=== PATIENT | male | born 1965 | race Hispanic/Latino ===

== ENCOUNTER 2017-11-17 09:32 | Emergency (ER) | payer MEDICAID ==
[2017-11-17 09:39] VITALS: TEMP 97.2; O2SAT 100
--- NOTE | 2017-11-17 10:18 | ED.PDOC ---
History of Present Illness - General Chief Complaint: GI Problem Stated Complaint: j-tube came out Time Seen by Provider: 11/17/17 10:09 Information Source: EMS Exam Limitations: clinical condition, physical impairment - History of Present Illness Initial Comments: THIS PATIENT COMES FROM [facility]. HE HAS BEEN THERE FOR ABOUT ONE MONTH AND EVIDENTLY HE SUSTAINED AN ANOXIC INJURY. NOW HE IS VENTILATOR DEPENDENT. THIS MORNING IT WAS NOTED THAT THE J-TUBE WAS TOTALLY OUT OF PLACE. THE NURSING STAFF OBTAINED A DOUBLE LUMEN GI FEEDING TUBE AND PLACED IT IN THE STOMA. NOW THE PATIENT IS HERE TO SEE IF THE TUBE IS PLACED INSIDE THE INTESTINE. WILL OBTAIN AN X-RAY WITH DYE TO VERIFY PLACEMENT. Pain Radiation: LLQ Review of Systems - Review of Systems Unable to Obtain Due To: intubated Past Medical History (General) - Patient Medical History Hx Stroke: No Hx Congestive Heart Failure: No Hx Diabetes: No - Vaccination History Hx Influenza Vaccination: Yes - 10/26/17 Hx Pneumococcal Vaccination: Yes - 10/28/17 - Social History Hx Tobacco Use: - unknown - Activities of Daily Living Half-Way/Assisted Living (if applicable):: [facility] Family Medical History - Family History Father Family History: Unknown Living Status: Unknown Physical Exam - Physical Exam General Appearance: Lethargic Respiratory: other - THE PATIENT HAS A TRACHEOSTOMEY AND IS ON A VENTILATOR. Cardiovascular/Chest: normal peripheral pulses, regular rate, rhythm Gastrointestinal/Abdominal: other - A DOUBLE LUMEN GI FEEDING TUBE HAS BEEN PLACED AT THE HALF-WAY. Progress - Progress Progress: 11/17/17 11:29 I HAVE SPOKEN WITH DR. ISABELLE MCKENZIE FROM [facility]. AND HE SUGGESTS TO REMOVE THE EXISTING G-TUBE THAT WAS PLACED TEMPORARILY BY THE NURSING STAFF AND THEN REPLACED IT WITH A NO 16 MURRAY CATHETER. - Results/Orders Results/Orders: THE ABDOMINAL FILM WITH GASTROGRAFIN REVEALS THAT THE FEEDING TUBE IS IN PLACE. NO EXTRAVASATION OF THE DYE WAS NOTED. AT THIS TIME I AM NOT SURE THAT THIS FEEDING TUBE WITH AN INFLATED DISTAL BALLOON WILL BE SUFFICE. LOOKING AT THE MEDICAL RECORDS IT IS NOTED THAT THE J-TUBE WAS PLACED IN [place] ON October. WILL CALL DR. ISABELLE MCKENZIE AND DISCUSS THE CASE WITH HIM. Procedures - Additional Procedures Progress: REPLACEMENT OF J-TUBE. PER RECOMMENDATIONS OF DR. MCKENZIE THE G-TUBE WAS REPLACED WITH A NUMBER 16 MURRAY CATHETER. DYE WAS INJECTED THROUGH THE TUBE AND AGAIN IT SEEMS THAT THE MURRAY CATHETER IS INSIDE THE LUMEN OF THE JEJUNUM. NO EXTRAVASATION NOTED. Departure - Departure Clinical Impression: Jejunostomy tube fell out Time of Disposition: 13:39 Disposition: Discharge to SNF Condition: Fair Departure Forms: ED Discharge - Pt. Copy, Patient Portal Self Enrollment Instructions: DI for Feeding Tube Exchange Diet: resume usual diet Home Medications: Ambulatory Orders Acetaminophen [Acetaminophen ER] 650 mg PEG Q4H PRN 11/17/17 Acetylcysteine 2 ml IN BID 11/17/17 Budesonide (Inhalation) [Pulmicort] 0.5 mg IN BID 11/17/17 Calcitriol [Rocaltrol] 0.5 ml PEG DAILY 11/17/17 Ceftazidime [Fortaz] 2 gm IV INFUS BEDTIME 11/17/17 Emollient [Hydrophor] 1 oin EX BID 11/17/17 Emollient [Hydrophor] 1 oin EX PRN 11/17/17 Enoxaparin Sodium [Lovenox] 40 mg SUBCU QD 11/17/17 Ipratropium/Albuterol [Duoneb] 3 ml INH Q4H PRN 11/17/17 Ipratropium/Albuterol [Duoneb] 3 ml NEB Q6H 11/17/17 Magnesium Oxide 400 mg PEG DAILY 11/17/17 Pantoprazole Suspension [Protonix] 40 mg PEG DAILY 11/17/17 Potassium Bicarbonate [K-Effervescent] 25 meq PEG DAILY 11/17/17
--- NOTE | 2017-11-17 10:53 | RAD ---
EXAM DESCRIPTION: Abdomen Flat Upright CLINICAL HISTORY: check placement on tube that was replaced at [facility] COMPARISON: None. IMPRESSION: Single AP portable supine view of the abdomen shows contrast injection through the feeding tube. Contrast is seen in loops of small bowel in the left midabdomen suggesting jejunostomy tube. Correlate with type of tube. Bowel gas pattern is nonspecific. No contrast is seen outside the lumen of small bowel. AP portable upright view of the chest shows tracheostomy tube in place with tip at the level of the clavicular heads. Lungs are normally aerated. Increased interstitial markings in the left perihilar and lower lobe region could represent chronic changes versus atelectasis or acute pneumonia or pneumonitis. Mild blunting of left costophrenic angle may represent small pleural effusion versus chronic changes. Short-term interval follow-up is recommended if no prior imaging studies are available. Electronically signed by: Kain Cruz MD 11/17/2017 10:52 AM TEACHER COUNSELOR
--- NOTE | 2017-11-17 13:46 | RAD ---
EXAM DESCRIPTION: Abdomen Flat Upright CLINICAL HISTORY: Use Gastrograffin to check placement of tube COMPARISON: November 17, 2017 at 1027 hours. IMPRESSION: Single AP portable supine view of the abdomen shows progression of contrast previously seen in the small bowel on the left midabdomen into the colon to the level of the sigmoid. There is some contrast identified in portions of the catheter overlying the left lower quadrant of the abdomen. Bowel gas pattern is nonspecific. Electronically signed by: Kain Cruz MD 11/17/2017 1:45 PM EDUCATIONAL SPEECH LANGUAGE CLINICIAN
[2017-11-17 14:39] VITALS: BP 136/88
== END 2017-11-17 14:20 ==
LOC: EDBD 09:32 → ER 09:32
DX: Z43.4 Encounter for attention to other artificial openings of digestive tract (principal); G93.1 Anoxic brain damage, not elsewhere classified; Z99.11 Dependence on respirator [ventilator] status

== ENCOUNTER 2017-12-19 14:13 | Emergency (ER) | payer OTHER ==
[2017-12-19] MEDS ORDERED: LIDOCAINE HCL 2% (MOUTH-THROAT) 15 ML UD ONE (14:19)
[2017-12-19 14:28] VITALS: TEMP 97.7; O2SAT 100
--- NOTE | 2017-12-19 15:02 | ED.PDOC ---
History of Present Illness - General Chief Complaint: GI Problem Stated Complaint: feeding tube clogged Time Seen by Provider: 12/19/17 14:59 Source: EMS notes reviewed, half-way records Exam Limitations: clinical condition - History of Present Illness Initial Comments: the patient is a 52-year-old male with long-term disability resigning from the half-way after having had his feeding tube which is actually a Garcia catheterclogged up. This Garcia catheter was placed here less than a month ago here after he had a complication with his previous feeding tube. It does not appear that a proper feeding tube had ever been switched out at the facility. The patient is in his baseline state of health otherwise apparently.. Timing/Duration: 4-6 hours Severity: moderate Improving Factors: nothing Worsening Factors: nothing Allergies/Adverse Reactions: Allergies NO KNOWN ALLERGY Allergy (Verified 11/17/17 09:49) Home Medications: Ambulatory Orders Acetaminophen [Acetaminophen ER] 650 mg PEG Q4H PRN 11/17/17 Acetylcysteine 2 ml IN BID 11/17/17 Calcitriol [Rocaltrol] 0.5 ml PEG DAILY 11/17/17 Emollient [Hydrophor] 1 oin EX BID 11/17/17 Emollient [Hydrophor] 1 oin EX PRN 11/17/17 Enoxaparin Sodium [Lovenox] 40 mg SUBCU QD 11/17/17 Ipratropium/Albuterol [Duoneb] 3 ml INH Q4H PRN 11/17/17 Ipratropium/Albuterol [Duoneb] 3 ml NEB Q6H 11/17/17 Magnesium Oxide 400 mg PEG DAILY 11/17/17 Pantoprazole Suspension [Protonix] 40 mg PEG DAILY 11/17/17 Potassium Bicarbonate [K-Effervescent] 25 meq PEG DAILY 11/17/17 Nystatin (Topical) [Nystatin] 100,000 unit EX DAILY 12/19/17 Review of Systems - Review of Systems Review of Systems: 12/19/17 15:02 patient unable to give review of systems. Past Medical History (General) - Patient Medical History Hx Stroke: No Hx Congestive Heart Failure: No Hx Diabetes: No - Vaccination History Hx Influenza Vaccination: Yes - 10/26/17 Hx Pneumococcal Vaccination: Yes - 10/28/17 - Social History Hx Tobacco Use: - unknown - Activities of Daily Living Shelter/Assisted Living (if applicable):: [facility] Family Medical History - Family History Father Family History: Unknown Living Status: Unknown Physical Exam - Physical Exam General Appearance: Alert, Comfortable - he cannot communicate Eye Exam: bilateral normal - for him Ears, Nose, Throat: hearing grossly normal - he does seem to respond a little bit sound., normal pharynx Neck: supple - racheostomy is in place Respiratory: no respiratory distress, no accessory muscle use Cardiovascular/Chest: normal peripheral pulses, no edema Peripheral Pulses: radial,right: 2+, radial,left: 2+ Gastrointestinal/Abdominal: non tender - garcia catheter is initially in place of the G-tube, soft Rectal Exam: deferred Extremity: other - chronic contractures. Neurologic: alert - rientation is unable to be tested. Skin Exam: normal color Comments: Vital Signs - 24 hr 12/19/17 12/19/17 14:14 14:24 Temperature 97.7 F Pulse Rate [ 91 H Right Brachial] Respiratory 14 Rate Respiratory 16 Rate [Volume Control Data] Blood Pressure 125/87 [Right Arm] O2 Sat by Pulse 100 Oximetry Progress - Progress Progress: 12/19/17 16:00 the patient is a 52-year-old male presenting to the emergency room secondary to dysfunction of his temporary J-tube. The Garcia catheter that was being used had started to break down. The tube was replaced with a 18 Australian G-tube with a 8CC bulb. Placement was confirmed with an x-ray with Gastrografin. The patient tolerated the procedure well. he needs to follow up with the facility doctor later this week. ER warnings were given. Departure - Departure Clinical Impression: Feeding tube dysfunction Qualifiers: Encounter type: initial encounter Qualified Code(s): T85.598A - Other mechanical complication of other gastrointestinal prosthetic devices, implants and grafts, initial encounter Disposition: Discharge to SNF Condition: Fair Departure Forms: ED Discharge - Pt. Copy, Patient Portal Self Enrollment Diet: regular diet - resume his regular feedings Activity: increase activity as tolerated Referrals: FAUZIA [facility] [Primary Care Provider] - 1-5 Days Home Medications: Ambulatory Orders Acetaminophen [Acetaminophen ER] 650 mg PEG Q4H PRN 11/17/17 Acetylcysteine 2 ml IN BID 11/17/17 Calcitriol [Rocaltrol] 0.5 ml PEG DAILY 11/17/17 Emollient [Hydrophor] 1 oin EX BID 11/17/17 Emollient [Hydrophor] 1 oin EX PRN 11/17/17 Enoxaparin Sodium [Lovenox] 40 mg SUBCU QD 11/17/17 Ipratropium/Albuterol [Duoneb] 3 ml INH Q4H PRN 11/17/17 Ipratropium/Albuterol [Duoneb] 3 ml NEB Q6H 11/17/17 Magnesium Oxide 400 mg PEG DAILY 11/17/17 Pantoprazole Suspension [Protonix] 40 mg PEG DAILY 11/17/17 Potassium Bicarbonate [K-Effervescent] 25 meq PEG DAILY 11/17/17 Nystatin (Topical) [Nystatin] 100,000 unit EX DAILY 12/19/17 Additional Instructions: the patient is a 52-year-old male presenting to the emergency room secondary to dysfunction of his temporary J-tube. The Garcia catheter that was being used had started to break down. The tube was replaced with a 18 Australian G-tube with a 8CC bulb. Placement was confirmed with an x-ray with Gastrografin. The patient tolerated the procedure well. he needs to follow up with the facility doctor later this week. ER warnings were given.
[2017-12-19 15:34] VITALS: BP 131/83
--- NOTE | 2017-12-19 15:58 | RAD ---
EXAM DESCRIPTION: J-Tube Placement CLINICAL HISTORY: 52 years Male, CHECK NEW PLACEMENT COMPARISON: Abdomen radiographs 11/17/2017. TECHNIQUE: Supine AP images upper and lower abdomen and pelvis, after referring physician injected Gastrografin contrast through tube in the left lower quadrant.. FINDINGS: Contrast can be seen in loops of small bowel which have a mucosal pattern consistent with jejunum. No contrast extravasation is seen. No obstruction. IMPRESSION: Percutaneous tube within the jejunum showing no extravasation of oral contrast and no obstruction. Electronically signed by: Nomi Johnston MD 12/19/2017 3:57 PM CDT
== END 2017-12-19 16:15 ==
LOC: ER 14:13
DX: K94.13 Enterostomy malfunction (principal)

== ENCOUNTER 2018-03-25 16:15 | Emergency (ER) | payer OTHER ==
[2018-03-25] MEDS ORDERED: SILVER SULFADIAZINE 1 % 25 GM TUBE TOP ONE (16:44)
--- NOTE | 2018-03-25 17:52 | RAD ---
EXAM: SINGLE VIEW ABDOMEN RADIOGRAPH CLINICAL INDICATION: Post percutaneous gastric tube placement evaluation. COMPARISON: Compared to the examination of December 19, 2017 and November 17, 2017. FINDINGS: Percutaneous gastric feeding tube has been placed with tip in the jejunum. Small amount of nonvariant based contrast injected demonstrating intraluminal tube location. No evidence of extraluminal leakage of contrast. No bowel obstruction or free peritoneal gas on this single view. IMPRESSION: Percutaneous feeding tube appears in appropriate position in the upstream jejunum without evidence of leakage. Electronically signed by: Esteban Ayala MD 03/25/2018 5:51 PM CDT
--- NOTE | 2018-03-25 18:09 | ED.PDOC ---
History of Present Illness - General Chief Complaint: General Stated Complaint: Pulled out J-tube Time Seen by Provider: 03/25/18 16:38 Source: Vital Signs reviewed, EMS, old records Exam Limitations: physical impairment - History of Present Illness Initial Comments: transfer from [facility] facility for displacement of his feeding tube about 45 min B[facility] ICER. He has a recurrent h/o such. Timing/Duration: 1 hour Worsening Factors: nothing Associated Symptoms: other - no other issues reported Allergies/Adverse Reactions: Allergies NO KNOWN ALLERGY Allergy (Verified 03/25/18 16:23) Home Medications: Ambulatory Orders Acetaminophen [Acetaminophen ER] 650 mg PEG Q4H PRN 11/17/17 Acetylcysteine 2 ml IN BID 11/17/17 Calcitriol [Rocaltrol] 0.5 ml PEG DAILY 11/17/17 Emollient [Hydrophor] 1 oin EX BID 11/17/17 Emollient [Hydrophor] 1 oin EX PRN 11/17/17 Enoxaparin Sodium [Lovenox] 40 mg SUBCU QD 11/17/17 Ipratropium/Albuterol [Duoneb] 3 ml INH Q4H PRN 11/17/17 Ipratropium/Albuterol [Duoneb] 3 ml NEB Q6H 11/17/17 Magnesium Oxide 400 mg PEG DAILY 11/17/17 Pantoprazole Suspension [Protonix] 40 mg PEG DAILY 11/17/17 Potassium Bicarbonate [K-Effervescent] 25 meq PEG DAILY 11/17/17 Nystatin (Topical) [Nystatin] 100,000 unit EX DAILY 12/19/17 Review of Systems - Review of Systems Constitutional: States: see HPI Gastrointestinal/Abdominal: States: see HPI Skin: States: see HPI Neurological: States: see HPI Past Medical History (General) - Patient Medical History Hx Stroke: No Hx Congestive Heart Failure: No Hx Diabetes: No Hx Other - free text: anoxic brain injury Surgical History: other - percutaneous g-tube - Vaccination History Hx Influenza Vaccination: Yes - 10/26/17 Hx Pneumococcal Vaccination: Yes - 10/28/17 - Social History Hx Tobacco Use: - unknown Family Medical History - Family History Father Family History: Unknown Living Status: Unknown Physical Exam - Physical Exam General Appearance: Alert, Comfortable, No apparent distress Neck: normal inspection Respiratory: no respiratory distress Gastrointestinal/Abdominal: non tender, soft, no pulsatile mass, other - per- stomal inflammation Extremity: other - contractures Neurologic: other - nonverbal Progress - EKG/XRAY/CT XRAY: tip in the jejunum Procedures - Additional Procedures Additional Procedures: gastric tube replacement - 16 Fr Smith placed without difficulty. Bowel sound sheard. Placement confirmed with gastrograffin study. Silvadene to irritation site. Departure - Departure Clinical Impression: Jejunostomy tube fell out Time of Disposition: 18:08 Disposition: Discharge to Rehab Facility Condition: Good Departure Forms: ED Discharge - Pt. Copy, Patient Portal Self Enrollment Diet: resume usual diet Referrals: FAUZIA REID [Primary Care Provider] - 03/27/18 Home Medications: Ambulatory Orders Acetaminophen [Acetaminophen ER] 650 mg PEG Q4H PRN 11/17/17 Acetylcysteine 2 ml IN BID 11/17/17 Calcitriol [Rocaltrol] 0.5 ml PEG DAILY 11/17/17 Emollient [Hydrophor] 1 oin EX BID 11/17/17 Emollient [Hydrophor] 1 oin EX PRN 11/17/17 Enoxaparin Sodium [Lovenox] 40 mg SUBCU QD 11/17/17 Ipratropium/Albuterol [Duoneb] 3 ml INH Q4H PRN 11/17/17 Ipratropium/Albuterol [Duoneb] 3 ml NEB Q6H 11/17/17 Magnesium Oxide 400 mg PEG DAILY 11/17/17 Pantoprazole Suspension [Protonix] 40 mg PEG DAILY 11/17/17 Potassium Bicarbonate [K-Effervescent] 25 meq PEG DAILY 11/17/17 Nystatin (Topical) [Nystatin] 100,000 unit EX DAILY 12/19/17
[2018-03-25 18:17] VITALS: TEMP 98.2; O2SAT 99
[2018-03-25 18:19] VITALS: BP 119/63
== END 2018-03-25 18:24 ==
LOC: ER 16:15
DX: K94.19 Other complications of enterostomy (principal); G93.1 Anoxic brain damage, not elsewhere classified; Z79.899 Other long term (current) drug therapy

== ENCOUNTER 2018-04-07 20:15 | Emergency (ER) | payer OTHER ==
--- NOTE | 2018-04-07 20:31 | ED.PDOC ---
History of Present Illness - General Time Seen by Provider: 04/07/18 20:25 Source: EMS Exam Limitations: clinical condition - History of Present Illness Initial Comments: patient comes from [facility] for clogged J-tube. Per EMS no other information was given and staff could not tell them how long it had been a problem. Staff today tried to flush it without success. Patient is vent dependant with brain anoxic injury and cannot talk. He is severely contracted on the arms and legs. Timing/Duration: 24 hours Severity: moderate Improving Factors: nothing Worsening Factors: nothing Associated Symptoms: denies symptoms Allergies/Adverse Reactions: Allergies NO KNOWN ALLERGY Allergy (Verified 03/25/18 16:23) Home Medications: Ambulatory Orders Acetaminophen [Acetaminophen ER] 650 mg PEG Q4H PRN 11/17/17 Acetylcysteine 2 ml IN BID 11/17/17 Calcitriol [Rocaltrol] 0.5 ml PEG DAILY 11/17/17 Emollient [Hydrophor] 1 oin EX BID 11/17/17 Emollient [Hydrophor] 1 oin EX PRN 11/17/17 Enoxaparin Sodium [Lovenox] 40 mg SUBCU QD 11/17/17 Ipratropium/Albuterol [Duoneb] 3 ml INH Q4H PRN 11/17/17 Ipratropium/Albuterol [Duoneb] 3 ml NEB Q6H 11/17/17 Magnesium Oxide 400 mg PEG DAILY 11/17/17 Pantoprazole Suspension [Protonix] 40 mg PEG DAILY 11/17/17 Potassium Bicarbonate [K-Effervescent] 25 meq PEG DAILY 11/17/17 Nystatin (Topical) [Nystatin] 100,000 unit EX DAILY 12/19/17 Review of Systems - Review of Systems Review of Systems: 04/07/18 20:35 unable to eval secondary to chronic medical condition Past Medical History (General) - Patient Medical History Hx Stroke: No Hx Congestive Heart Failure: No Hx Diabetes: No Hx Other - free text: Brain anoxic injury, liver cirrhosis, respiratory failure - Vaccination History Hx Influenza Vaccination: Yes - 10/26/17 Hx Pneumococcal Vaccination: Yes - 10/28/17 - Social History Hx Tobacco Use: - unknown Family Medical History - Family History Father Family History: Unknown Living Status: Unknown Physical Exam - Physical Exam General Appearance: Frail, Other - frail man with eyes open but not responsive to verbal who is thin and contracted in all extremities Eye Exam: bilateral normal Neck: supple, normal inspection Respiratory: chest non-tender, lungs clear, normal breath sounds Cardiovascular/Chest: normal peripheral pulses, regular rate, rhythm, no edema Gastrointestinal/Abdominal: normal bowel sounds, non tender, soft, other - feeding tube on the L mid abdomen with mild erythema of the 2 cm surrounding the area, no purulence no calor Extremity: other - contractures of all four extremties Progress - Progress Progress: 04/07/18 20:39 attempted flush with 60 ml of warm water with no passing of fluid able to be performed. Departure - Departure Clinical Impression: Feeding tube dysfunction Qualifiers: Encounter type: initial encounter Qualified Code(s): T85.598A - Other mechanical complication of other gastrointestinal prosthetic devices, implants and grafts, initial encounter Disposition: Transfer to Hospital Condition: Fair Referrals: FAUZIA REID [Primary Care Provider] - 1-2 Weeks Home Medications: Ambulatory Orders Acetaminophen [Acetaminophen ER] 650 mg PEG Q4H PRN 11/17/17 Acetylcysteine 2 ml IN BID 11/17/17 Calcitriol [Rocaltrol] 0.5 ml PEG DAILY 11/17/17 Emollient [Hydrophor] 1 oin EX BID 11/17/17 Emollient [Hydrophor] 1 oin EX PRN 11/17/17 Enoxaparin Sodium [Lovenox] 40 mg SUBCU QD 11/17/17 Ipratropium/Albuterol [Duoneb] 3 ml INH Q4H PRN 11/17/17 Ipratropium/Albuterol [Duoneb] 3 ml NEB Q6H 11/17/17 Magnesium Oxide 400 mg PEG DAILY 11/17/17 Pantoprazole Suspension [Protonix] 40 mg PEG DAILY 11/17/17 Potassium Bicarbonate [K-Effervescent] 25 meq PEG DAILY 11/17/17 Nystatin (Topical) [Nystatin] 100,000 unit EX DAILY 12/19/17 Transfer to Outside Facility - Transfer Information Accepting Provider:: Dr. Bassett to ICU Accepting Facility: [facility] Reason for Transfer: specialized care not available
[2018-04-07 23:10] VITALS: O2SAT 100
[2018-04-07 23:12] VITALS: BP 136/67; TEMP 98.3
== END 2018-04-07 23:20 | disposition short-term general hospital (02) ==
LOC: ER 20:15
DX: T85.598A Other mechanical complication of other gastrointestinal prosthetic devices, implants and grafts, initial encounter (principal); G93.1 Anoxic brain damage, not elsewhere classified; Z99.11 Dependence on respirator [ventilator] status; Z79.899 Other long term (current) drug therapy

== ENCOUNTER 2018-04-10 20:14 | Emergency (ER) | payer OTHER ==
--- NOTE | 2018-04-10 21:07 | RAD ---
EXAM DESCRIPTION: KUB CLINICAL HISTORY: gtube placement COMPARISON: 03/25/2018. FINDINGS: Single supine view of the abdomen was submitted. Gastrografin is present. No extravasation is seen. Percutaneous tube appears to be within jejunum. No evidence of bowel obstruction. There is no evidence of bowel obstruction. There is no abnormal calcification within the abdomen. There is no acute osseous process visualized. IMPRESSION: Percutaneous jejunal tube appears to be in appropriate position. Electronically signed by: Nomi Martinez 04/10/2018 9:06 PM CDT
--- NOTE | 2018-04-10 21:18 | ED.PDOC ---
History of Present Illness - General Chief Complaint: GI Problem Stated Complaint: J-tube out Time Seen by Provider: 04/10/18 20:25 Source: EMS notes reviewed, snf records Exam Limitations: clinical condition - History of Present Illness Initial Comments: the patient is a 52-year-old male presenting to the emergency room from [facility]. The patient had pulled his J-tube. This is not the first time that this is happening. He had apparently just had it placed this morning according to information from the snf therefore the balloon and likely never inflated and the tube easily came out. Upon examination of the J-tube that was brought in, it appears that the tip had been snipped with scissors and the balloon had apparently been cut with the same incision. The balloon and therefore likely never inflated and was easily pulled out by the patient. Timing/Duration: 1 hour Severity: mild Improving Factors: nothing Allergies/Adverse Reactions: Allergies Zinc Oxide Allergy (Verified 04/07/18 23:39) Home Medications: Ambulatory Orders Acetaminophen [Acetaminophen ER] 650 mg PEG Q4H PRN 11/17/17 Acetylcysteine 2 ml IN BID 11/17/17 Calcitriol [Rocaltrol] 0.5 ml PEG DAILY 11/17/17 Emollient [Hydrophor] 1 oin EX BID 11/17/17 Emollient [Hydrophor] 1 oin EX PRN 11/17/17 Enoxaparin Sodium [Lovenox] 40 mg SUBCU QD 11/17/17 Ipratropium/Albuterol [Duoneb] 3 ml INH Q4H PRN 11/17/17 Ipratropium/Albuterol [Duoneb] 3 ml NEB Q6H 11/17/17 Magnesium Oxide 400 mg PEG DAILY 11/17/17 Pantoprazole Suspension [Protonix] 40 mg PEG DAILY 11/17/17 Potassium Bicarbonate [K-Effervescent] 25 meq PEG DAILY 11/17/17 Nystatin (Topical) [Nystatin] 100,000 unit EX DAILY 12/19/17 Review of Systems - Review of Systems Review of Systems: 04/10/18 21:18 unable to be obtained secondary to the patient's clinical condition Past Medical History (General) - Patient Medical History Hx Stroke: No Hx Dementia: Yes Hx of COPD: - resp failure Hx Congestive Heart Failure: No Hx Diabetes: No Hx Gastroesophageal Reflux: Yes - j-tube in place - Vaccination History Hx Influenza Vaccination: Yes - 10/26/17 Hx Pneumococcal Vaccination: Yes - 10/28/17 Immunizations Up to Date: Yes - Social History Hx Tobacco Use: - unknown Hx Alcohol Use: No - Activities of Daily Living Care Home/Assisted Living (if applicable):: [facility] - Triage Comment ED Triage Comment: vent dependent pt , with contractures, was found with jj- tube lying in bed Family Medical History - Family History Father Family History: Unknown Living Status: Unknown Physical Exam - Physical Exam General Appearance: Alert, Comfortable, No apparent distress Eye Exam: bilateral normal Ears, Nose, Throat: hearing grossly normal Neck: supple, other - tracheostomy in place Respiratory: normal breath sounds, no respiratory distress - patient is ventilator dependent, no accessory muscle use Cardiovascular/Chest: normal peripheral pulses, no edema, other - regular rate Peripheral Pulses: radial,right: 2+, radial,left: 2+ Gastrointestinal/Abdominal: soft, other - surgical scars are noted Rectal Exam: deferred Extremity: no pedal edema, normal capillary refill, other - multiple contractures that are chronic Neurologic: alert, normal mood/affect - for this patient Skin Exam: normal color Comments: Vital Signs - 24 hr 04/10/18 04/10/18 04/10/18 20:17 20:22 20:29 Temperature 97.3 F L Pulse Rate [ 72 Right] Respiratory 16 16 Rate Respiratory 16 Rate [Volume Control Data] Blood Pressure 156/90 [rt] O2 Sat by Pulse 100 Oximetry Progress - Progress Progress: 04/10/18 21:20 the patient is a 52-year-old male presenting to the emergency room after having accidentally pulled his J-tube. There are no J-tubes available at this facility or at his snf for replacement. The tube is replaced with a size 16 Smith with the end snipped to allow for easier flow materials. the bulb at the tip was inflated with 8 cc as has previously been done before. x- ray with Gastrografin was done to confirm placement. he seems to be tolerating this well. Recommend routine flushing of this to prevent clogging. Arrangement at his long-term care facility will need to be made to have a clear silicone tube replace it in a few weeks as the Smith catheter will have more rapid breakdown and will likely clock more easily. ER warnings were given. I would recommend that his long-term care facility keep an extra appropriate J- tube on hand for any future recurrences. Departure - Departure Clinical Impression: Jejunostomy tube fell out Disposition: Discharge to SNF Condition: Fair Departure Forms: ED Discharge - Pt. Copy, Patient Portal Self Enrollment Diet: other Activity: increase activity as tolerated Referrals: FAUZIA REID [Primary Care Provider] - 1-5 Days Home Medications: Ambulatory Orders Acetaminophen [Acetaminophen ER] 650 mg PEG Q4H PRN 11/17/17 Acetylcysteine 2 ml IN BID 11/17/17 Calcitriol [Rocaltrol] 0.5 ml PEG DAILY 11/17/17 Emollient [Hydrophor] 1 oin EX BID 11/17/17 Emollient [Hydrophor] 1 oin EX PRN 11/17/17 Enoxaparin Sodium [Lovenox] 40 mg SUBCU QD 11/17/17 Ipratropium/Albuterol [Duoneb] 3 ml INH Q4H PRN 11/17/17 Ipratropium/Albuterol [Duoneb] 3 ml NEB Q6H 11/17/17 Magnesium Oxide 400 mg PEG DAILY 11/17/17 Pantoprazole Suspension [Protonix] 40 mg PEG DAILY 11/17/17 Potassium Bicarbonate [K-Effervescent] 25 meq PEG DAILY 11/17/17 Nystatin (Topical) [Nystatin] 100,000 unit EX DAILY 12/19/17 Additional Instructions: the patient is a 52-year-old male presenting to the emergency room after having accidentally pulled his J-tube. There are no J-tubes available at this facility or at his snf for replacement. The tube is replaced with a size 16 Smith with the end snipped to allow for easier flow materials. the bulb at the tip was inflated with 8 cc as has previously been done before with this patient. the bulb was tested prior to insertion. x-ray with Gastrografin was done to confirm placement. he seems to be tolerating this well. Recommend routine flushing of this to prevent clogging. Arrangement at his long-term care facility will need to be made to have a clear silicone tube replace it in a few weeks as the Smith catheter will have more rapid breakdown and will likely clog more easily. ER warnings were given. I would recommend that his long-term care facility keep an extra appropriate J-tube on hand for any future recurrences.
[2018-04-10 21:32] VITALS: BP 155/70; TEMP 97.8; O2SAT 98
== END 2018-04-10 21:52 ==
LOC: ER 20:14
DX: K94.13 Enterostomy malfunction (principal); J44.9 Chronic obstructive pulmonary disease, unspecified; F03.90 Unspecified dementia, unspecified severity, without behavioral disturbance, psychotic disturbance, mood disturbance, and anxiety; Z99.11 Dependence on respirator [ventilator] status; Z79.899 Other long term (current) drug therapy

== ENCOUNTER 2018-05-18 12:32 | Emergency (ER) | payer OTHER ==
[2018-05-18 12:43] VITALS: BP 195/98; TEMP 99; O2SAT 100
--- NOTE | 2018-05-18 12:50 | ED.PDOC ---
History of Present Illness - General Chief Complaint: GI Problem Stated Complaint: J-tube pulled out Time Seen by Provider: 05/18/18 12:47 Source: EMS, alf records - History of Present Illness Initial Comments: Patient is a alf resident with J Tube placed. Patient was being turned and the nurse noted that his J-tube had been dislodged. Patient had actually had it dislodged at the end of March and ER physician here had placed a garcia temporarily. It was still the garcia catheter that was being used. He is ventilator dependant and is non-verbal. His history is per old chart and alf. Timing/Duration: unsure Severity: mild Improving Factors: nothing Worsening Factors: nothing Associated Symptoms: denies symptoms Allergies/Adverse Reactions: Allergies Zinc Oxide Allergy (Verified 04/07/18 23:39) Home Medications: Ambulatory Orders Acetaminophen [Acetaminophen ER] 650 mg PEG Q4H PRN 11/17/17 Acetylcysteine 2 ml IN BID 11/17/17 Calcitriol [Rocaltrol] 0.5 ml PEG DAILY 11/17/17 Emollient [Hydrophor] 1 oin EX BID 11/17/17 Emollient [Hydrophor] 1 oin EX PRN 11/17/17 Enoxaparin Sodium [Lovenox] 40 mg SUBCU QD 11/17/17 Ipratropium/Albuterol [Duoneb] 3 ml INH Q4H PRN 11/17/17 Ipratropium/Albuterol [Duoneb] 3 ml NEB Q6H 11/17/17 Magnesium Oxide 400 mg PEG DAILY 11/17/17 Pantoprazole Suspension [Protonix] 40 mg PEG DAILY 11/17/17 Potassium Bicarbonate [K-Effervescent] 25 meq PEG DAILY 11/17/17 Nystatin (Topical) [Nystatin] 100,000 unit EX DAILY 12/19/17 Review of Systems - Review of Systems Review of Systems: 05/18/18 13:22 unable to obtain secondary to chronic conditions. Past Medical History (General) - Patient Medical History Hx Stroke: No Hx Dementia: Yes Hx of COPD: - resp failure Hx Congestive Heart Failure: No Hx Diabetes: No Hx Gastroesophageal Reflux: Yes - j-tube in place - Vaccination History Hx Influenza Vaccination: - unknown Hx Pneumococcal Vaccination: - unknown - Social History Hx Tobacco Use: - unknown Hx Alcohol Use: No - Activities of Daily Living Residential/Assisted Living (if applicable):: [facility] Family Medical History - Family History Father Family History: Unknown Living Status: Unknown Physical Exam - Physical Exam General Appearance: Emaciated, Frail, Other - contractures of arms and legs, chronic irritation to the fry area Neck: full range of motion, supple Respiratory: chest non-tender, lungs clear, normal breath sounds, other - vent dependant Cardiovascular/Chest: normal peripheral pulses, regular rate, rhythm, no murmur Gastrointestinal/Abdominal: normal bowel sounds, soft, other - J tube gone with mild irritation at stoma Progress - Progress Progress: 05/18/18 13:25 At this time we have no J tubes available. Looking at old notes it appears that original tract was a 16 gauge. The 16-gauge Garcia catheter is placed with the balloon was tested prior to insertion. 10 cc of water was used to inflate the balloon. Gastrografin was used for confirmation of placement. The patient does need to have some form of an external fixation placed on the tube at the alf. The patient is to be transferred back to his long-term care facility. He does need to be followed up by the attending physician later this week. It flushes well but needs to be attended to and made sure secure as this is not meant to be a more permanent feeding tube. It is only a temporizing measure. Departure - Departure Clinical Impression: Jejunostomy tube fell out Disposition: Discharge to SNF Condition: Fair Departure Forms: ED Discharge - Pt. Copy, Patient Portal Self Enrollment Diet: resume usual diet Referrals: FAUZIA REID [Primary Care Provider] - 1-2 Weeks Home Medications: Ambulatory Orders Acetaminophen [Acetaminophen ER] 650 mg PEG Q4H PRN 11/17/17 Acetylcysteine 2 ml IN BID 11/17/17 Calcitriol [Rocaltrol] 0.5 ml PEG DAILY 11/17/17 Emollient [Hydrophor] 1 oin EX BID 11/17/17 Emollient [Hydrophor] 1 oin EX PRN 11/17/17 Enoxaparin Sodium [Lovenox] 40 mg SUBCU QD 11/17/17 Ipratropium/Albuterol [Duoneb] 3 ml INH Q4H PRN 11/17/17 Ipratropium/Albuterol [Duoneb] 3 ml NEB Q6H 11/17/17 Magnesium Oxide 400 mg PEG DAILY 11/17/17 Pantoprazole Suspension [Protonix] 40 mg PEG DAILY 11/17/17 Potassium Bicarbonate [K-Effervescent] 25 meq PEG DAILY 11/17/17 Nystatin (Topical) [Nystatin] 100,000 unit EX DAILY 12/19/17 Additional Instructions: please have MD see patient and recheck tube within next week. Patient should have J-Tube ordered for replacement as garcia is temporary feeding tube only. Please flush several times a day to keep from clogging
[2018-05-18] MEDS ORDERED: POVIDONE IODINE 10 % 15 ML UD TOP ONE (12:59)
--- NOTE | 2018-05-18 13:35 | RAD ---
EXAM DESCRIPTION: KUB CLINICAL HISTORY: replacement of J tube verify placement COMPARISON: April 29, 2018 IMPRESSION: Portable lateral view of the abdomen shows contrast injected into the J-tube. Contrast is seen and small bowel suggesting good positioning of the J-tube similar to previous exam. Nonspecific bowel gas pattern is seen. Mild disc degenerative changes of the spine are noted. Electronically signed by: Kain Cruz MD 05/18/2018 1:33 PM CDT
== END 2018-05-18 13:55 ==
LOC: ER 12:32
DX: Z43.1 Encounter for attention to gastrostomy (principal); F03.90 Unspecified dementia, unspecified severity, without behavioral disturbance, psychotic disturbance, mood disturbance, and anxiety; Z99.11 Dependence on respirator [ventilator] status; Z79.899 Other long term (current) drug therapy; Z88.8 Allergy status to other drugs, medicaments and biological substances

== ENCOUNTER 2018-06-03 11:25 | Emergency (ER) | payer OTHER ==
--- NOTE | 2018-06-03 12:11 | ED.PDOC ---
History of Present Illness - General Chief Complaint: GI Problem Stated Complaint: Pulled out J-tube Time Seen by Provider: 06/03/18 12:02 Information Source: RN notes reviewed, Vital Signs reviewed, EMS notes reviewed Exam Limitations: other - PT CAN NOT COMMUNICATE HE IS A CHRONIC VENT DEPENDANT PATIENT WITH SEVERE FLEXION DEFORMITY INVOLVING ALL 4 EXTREMITIES Additional Information: 52 YEAR OL CHRONIC VENT PATIENT SENT HERE FOR REPLACEMENT OF G TUBE THAT FELL OUT NORMALLY HE GETS A MURRAY CATHETER REPLACED TILL A J TUBE FEEDING TUBE IS REPLACED - History of Present Illness Abdominal Pain Onset Location: epigastric Review of Systems - Review of Systems Unable to Obtain Due To: condition, intubated Past Medical History (General) - Patient Medical History Hx Stroke: No Hx Dementia: Yes Hx of COPD: - resp failure Hx Congestive Heart Failure: No Hx Diabetes: No Hx Gastroesophageal Reflux: Yes - Vaccination History Hx Influenza Vaccination: - unknown Hx Pneumococcal Vaccination: - unknown - Social History Hx Tobacco Use: - unknown Hx Alcohol Use: No - Activities of Daily Living Care Home/Assisted Living (if applicable):: [facility] Family Medical History - Family History Father Family History: Unknown Living Status: Unknown Physical Exam - Physical Exam General Appearance: Alert, Emaciated, Other - FLEXION DEFORMITY NOTED IN 4 EXTREMITY Eyes, Ears, Nose, Throat Exam: PERRL/EOMI, normal ENT inspection, TMs normal Neck: supple Respiratory: lungs clear, normal breath sounds Cardiovascular/Chest: normal peripheral pulses, regular rate, rhythm, no edema, no gallop, no JVD Gastrointestinal/Abdominal: normal bowel sounds, no organomegaly, no pulsatile mass Male Genitalia: normal genitalia Back Exam: normal inspection Extremity: no pedal edema Neurologic: motor weakness, other - UNABLE TO COMMUNICATE AND DO A NEURO EXAM DUE TO PATIENTS PRE EXISTING CONDITION Skin Exam: normal color, warm/dry Lymphatic: no adenopathy Progress - Results/Orders Results/Orders: A MURRAY 20 FR WAS INTRODUCED A REPLACEMENT FOR THE JEJUSOSTOMY TUBE AND A X RAY WAS DONE WITH GASTROGRAFFIN AND THE PLACEMENT WAS CONFIRMED WHICH IS PLACED IN THE LUMEN OF THE JEJUNUM THE MURRAY WAS ANCHORED WITH A 2 0 SILK STICH ON THE SKIN THE MURRAY KEEPS FALLING OUT Departure - Departure Clinical Impression: Feeding by G-tube Time of Disposition: 12:15 Disposition: Discharge to SNF Departure Forms: ED Discharge - Pt. Copy, Patient Portal Self Enrollment Referrals: FAUZIA REID [Primary Care Provider] - 1-2 Weeks Home Medications: Ambulatory Orders Acetaminophen [Acetaminophen ER] 650 mg PEG Q4H PRN 11/17/17 Acetylcysteine 2 ml IN BID 11/17/17 Calcitriol [Rocaltrol] 0.5 ml PEG DAILY 11/17/17 Emollient [Hydrophor] 1 oin EX BID 11/17/17 Emollient [Hydrophor] 1 oin EX PRN 11/17/17 Enoxaparin Sodium [Lovenox] 40 mg SUBCU QD 11/17/17 Ipratropium/Albuterol [Duoneb] 3 ml INH Q4H PRN 11/17/17 Ipratropium/Albuterol [Duoneb] 3 ml NEB Q6H 11/17/17 Magnesium Oxide 400 mg PEG DAILY 11/17/17 Pantoprazole Suspension [Protonix] 40 mg PEG DAILY 11/17/17 Potassium Bicarbonate [K-Effervescent] 25 meq PEG DAILY 11/17/17 Nystatin (Topical) [Nystatin] 100,000 unit EX DAILY 12/19/17
[2018-06-03 12:32] VITALS: O2SAT 100
[2018-06-03 13:01] VITALS: BP 124/68; TEMP 98
--- NOTE | 2018-06-03 13:12 | RAD ---
EXAM DESCRIPTION: Abdomen 1 View CLINICAL HISTORY: 52 years Male, check J tube placement COMPARISON: May 18, 2018 and April 29, 2018. FINDINGS: Contrast has apparently been injected into the jejunostomy tube and opacifies a couple of loops of small intestine in the left mid abdomen, as previously. No extraluminal collection of contrast is identified. There is mild nonspecific increase in small bowel gas but without gross dilatation. Bowel gas pattern is otherwise fairly unremarkable. No evidence of gross organomegaly. The film is of somewhat limited technical quality. IMPRESSION: Jejunostomy tube apparently within the small bowel. Electronically signed by: Helio Hernandez MD 06/03/2018 1:11 PM CDT
== END 2018-06-03 12:51 ==
LOC: ER 11:25
DX: Z43.4 Encounter for attention to other artificial openings of digestive tract (principal); J44.9 Chronic obstructive pulmonary disease, unspecified; F03.90 Unspecified dementia, unspecified severity, without behavioral disturbance, psychotic disturbance, mood disturbance, and anxiety; K21.9 Gastro-esophageal reflux disease without esophagitis; Z99.11 Dependence on respirator [ventilator] status; Z79.899 Other long term (current) drug therapy

== ENCOUNTER 2018-06-04 04:32 | Emergency (ER) | payer OTHER ==
[2018-06-04 04:47] VITALS: O2SAT 97
--- NOTE | 2018-06-04 05:05 | ED.PDOC ---
History of Present Illness - General Chief Complaint: GI Problem Stated Complaint: feeding tube out Time Seen by Provider: 06/04/18 05:02 Source: RN notes reviewed, EMS notes reviewed Additional Information: 52 YEAR OLD CHRONIC VENT DEPENDANT PATIENT HERE THE J TUBE FELL OUT THIS WAS REPLACED THIS MORNING HERE SINCE NO J TUBE AVAILABLE A MURRAY WAS USED AND IT WAS ANCHORED WITH A 3 0 SILK ONTO THE SKIN - History of Present Illness Timing/Duration: unsure Severity: mild Improving Factors: nothing Allergies/Adverse Reactions: Allergies Zinc Oxide Allergy (Verified 04/07/18 23:39) Home Medications: Ambulatory Orders Acetaminophen [Acetaminophen ER] 650 mg PEG Q4H PRN 11/17/17 Acetylcysteine 2 ml IN BID 11/17/17 Calcitriol [Rocaltrol] 0.5 ml PEG DAILY 11/17/17 Emollient [Hydrophor] 1 oin EX BID 11/17/17 Emollient [Hydrophor] 1 oin EX PRN 11/17/17 Enoxaparin Sodium [Lovenox] 40 mg SUBCU QD 11/17/17 Ipratropium/Albuterol [Duoneb] 3 ml INH Q4H PRN 11/17/17 Ipratropium/Albuterol [Duoneb] 3 ml NEB Q6H 11/17/17 Magnesium Oxide 400 mg PEG DAILY 11/17/17 Pantoprazole Suspension [Protonix] 40 mg PEG DAILY 11/17/17 Potassium Bicarbonate [K-Effervescent] 25 meq PEG DAILY 11/17/17 Nystatin (Topical) [Nystatin] 100,000 unit EX DAILY 12/19/17 Review of Systems - Review of Systems Unable to Obtain Due To: condition, intubated, clinical condition, other - POST TRAUMATIC BRAIN INJURY Past Medical History (General) - Patient Medical History Hx Stroke: No Hx Dementia: Yes Hx of COPD: - resp failure Hx Congestive Heart Failure: No Hx Diabetes: No Hx Gastroesophageal Reflux: Yes - Vaccination History Hx Influenza Vaccination: - unknown Hx Pneumococcal Vaccination: - unknown - Social History Hx Tobacco Use: - unknown Hx Alcohol Use: No Family Medical History - Family History Father Family History: Unknown Living Status: Unknown Physical Exam - Physical Exam General Appearance: Alert Eye Exam: bilateral normal Ears, Nose, Throat: hearing grossly normal, normal ENT inspection, other - HAS TEACHEOSTOMY Neck: supple Respiratory: lungs clear, normal breath sounds Cardiovascular/Chest: normal peripheral pulses, regular rate, rhythm, no edema Peripheral Pulses: radial,right: 2+, radial,left: 2+, femoral,right: 2+, femoral ,left: 2+ Gastrointestinal/Abdominal: soft, other - LAP SCAR NOTED JEJUNOSTOMY STOMA IDENTIFIED MURRAY WAS INSERTED BACK AND THIS TIME WE USED A NG TUBE MENON FOR ADDITIONAL SUPPORT Back Exam: normal inspection - LEFT THOROCOTOMY SCAR NOTED Skin Exam: normal color Lymphatic: no adenopathy Procedures - Additional Procedures Additional Procedures: gastric tube replacement - SEE BODY OF PHYSCIAL EXAM Departure - Departure Clinical Impression: Dislodged jejunostomy tube Time of Disposition: 05:09 Disposition: Discharge to SNF Condition: Fair Departure Forms: ED Discharge - Pt. Copy, Patient Portal Self Enrollment Diet: resume usual diet Referrals: FAUZIA REID [Primary Care Provider] - 1-2 Weeks Home Medications: Ambulatory Orders Acetaminophen [Acetaminophen ER] 650 mg PEG Q4H PRN 11/17/17 Acetylcysteine 2 ml IN BID 11/17/17 Calcitriol [Rocaltrol] 0.5 ml PEG DAILY 11/17/17 Emollient [Hydrophor] 1 oin EX BID 11/17/17 Emollient [Hydrophor] 1 oin EX PRN 11/17/17 Enoxaparin Sodium [Lovenox] 40 mg SUBCU QD 11/17/17 Ipratropium/Albuterol [Duoneb] 3 ml INH Q4H PRN 11/17/17 Ipratropium/Albuterol [Duoneb] 3 ml NEB Q6H 11/17/17 Magnesium Oxide 400 mg PEG DAILY 11/17/17 Pantoprazole Suspension [Protonix] 40 mg PEG DAILY 11/17/17 Potassium Bicarbonate [K-Effervescent] 25 meq PEG DAILY 11/17/17 Nystatin (Topical) [Nystatin] 100,000 unit EX DAILY 12/19/17
[2018-06-04 05:06] VITALS: BP 146/76; TEMP 98.4
== END 2018-06-04 05:38 ==
LOC: ER 04:32
DX: Z43.1 Encounter for attention to gastrostomy (principal); J96.90 Respiratory failure, unspecified, unspecified whether with hypoxia or hypercapnia; K21.9 Gastro-esophageal reflux disease without esophagitis; Z99.11 Dependence on respirator [ventilator] status; Z87.820 Personal history of traumatic brain injury; Z79.899 Other long term (current) drug therapy; Z88.8 Allergy status to other drugs, medicaments and biological substances

== ENCOUNTER 2018-06-06 17:32 | Emergency (ER) | payer OTHER ==
[2018-06-06 17:54] VITALS: TEMP 98.2; O2SAT 100
--- NOTE | 2018-06-06 17:55 | ED.PDOC ---
History of Present Illness - General Chief Complaint: GI Problem Stated Complaint: dislodged J tube Time Seen by Provider: 06/06/18 17:49 Information Source: EMS Exam Limitations: clinical condition - History of Present Illness Initial Comments: patient comes in for replacement of dislodged J tube. Patient has had this happen multiple times this month and chronically despite it currently being sutured in place. Patient is ventilator dependant and does not communicate secondary to brain injury. Patient is NH patient. Abdominal Pain Onset Location: other Review of Systems - Review of Systems Review of Systems: 06/06/18 17:54 unable to evaluate secondary to chronic clinical condition Past Medical History (General) - Patient Medical History Hx Seizures: No Hx Stroke: No Hx Dementia: Yes Hx Asthma: No Hx of COPD: - resp failure Hx Cardiac Disorders: No Hx Congestive Heart Failure: No Hx Pacemaker: No Hx Hypertension: No Hx Thyroid Disease: No Hx Diabetes: No Hx Gastroesophageal Reflux: Yes Hx Renal Disease: No - Vaccination History Hx Influenza Vaccination: - unknown Hx Pneumococcal Vaccination: - unknown - Social History Hx Tobacco Use: - unknown Hx Alcohol Use: No Family Medical History - Family History Father Family History: Unknown Living Status: Unknown Physical Exam - Physical Exam General Appearance: Frail, Other - contracted upper and lower extremities, trach in place no distress seen Eyes, Ears, Nose, Throat Exam: PERRL/EOMI Neck: non-tender, full range of motion, supple Respiratory: chest non-tender, lungs clear, normal breath sounds Cardiovascular/Chest: normal peripheral pulses, regular rate, rhythm, no murmur Peripheral Pulses: No deficit Gastrointestinal/Abdominal: other - abdomen with well established J tube stoma. old tube at side but still attached by suture, this was removed, Progress - Progress Progress: 06/06/18 17:56 area cleaned with sterile water and 16 FR garcia was passed easily through the tract. Balloon was inflated and placed verfied with gastrograffin. Patient tolerated procedure well. Will have NH used abdominal binder when tube is not in place to secure it during transfers. Departure - Departure Clinical Impression: Jejunostomy tube fell out Disposition: Discharge to SNF Condition: Fair Departure Forms: ED Discharge - Pt. Copy, Patient Portal Self Enrollment Referrals: FAUZIA REID [Primary Care Provider] - 1-2 Weeks Home Medications: Ambulatory Orders Acetaminophen [Acetaminophen ER] 650 mg PEG Q4H PRN 11/17/17 Acetylcysteine 2 ml IN BID 11/17/17 Calcitriol [Rocaltrol] 0.5 ml PEG DAILY 11/17/17 Emollient [Hydrophor] 1 oin EX BID 11/17/17 Emollient [Hydrophor] 1 oin EX PRN 11/17/17 Enoxaparin Sodium [Lovenox] 40 mg SUBCU QD 11/17/17 Ipratropium/Albuterol [Duoneb] 3 ml INH Q4H PRN 11/17/17 Ipratropium/Albuterol [Duoneb] 3 ml NEB Q6H 11/17/17 Magnesium Oxide 400 mg PEG DAILY 11/17/17 Pantoprazole Suspension [Protonix] 40 mg PEG DAILY 11/17/17 Potassium Bicarbonate [K-Effervescent] 25 meq PEG DAILY 11/17/17 Nystatin (Topical) [Nystatin] 100,000 unit EX DAILY 12/19/17 Additional Instructions: would keep binder in place when not using tube. remove and check under binder daily for skin abrasions.
[2018-06-06 18:22] VITALS: BP 134/68
--- NOTE | 2018-06-06 18:30 | RAD ---
EXAM DESCRIPTION: KUB CLINICAL HISTORY: 52 years, Male, replacement of J tube COMPARISON: June 03, 2018 FINDINGS: Single view of the abdomen demonstrating contrast within small bowel loops from the proximal small bowel/jejunal. Enteric tube seen with tip not clearly visualized but likely within the right upper abdomen. No extravasation of contrast seen in this examination. Nonobstructive bowel gas pattern. No abnormal calcifications. No acute osseous abnormality. IMPRESSION: Jejunostomy tube in place. Electronically signed by: Maksim Herrera MD 06/06/2018 6:28 PM CDT
== END 2018-06-06 18:21 ==
LOC: ER 17:32
DX: Z43.1 Encounter for attention to gastrostomy (principal); J96.10 Chronic respiratory failure, unspecified whether with hypoxia or hypercapnia; F03.90 Unspecified dementia, unspecified severity, without behavioral disturbance, psychotic disturbance, mood disturbance, and anxiety; K21.9 Gastro-esophageal reflux disease without esophagitis; Z99.11 Dependence on respirator [ventilator] status; Z87.820 Personal history of traumatic brain injury

== ENCOUNTER 2018-06-08 20:58 | Emergency (ER) | payer OTHER ==
--- NOTE | 2018-06-08 21:35 | RAD ---
EXAM DESCRIPTION: Chest,1 View CLINICAL HISTORY: 52 years Male possible aspiration COMPARISON: 05/24/2018 FINDINGS: Cardiomediastinal silhouette appears unchanged. There is a tracheostomy tube in place. No definite consolidation is noted. Small amount of atelectasis in the left base with elevation the left hemidiaphragm stable as compared to the previous study. No pneumothorax is noted. Patient's chin overlies the left apex. IMPRESSION: No definite consolidation to suggest aspiration at this time Electronically signed by: Isabel Barreto MD 06/08/2018 9:34 PM CDT
--- NOTE | 2018-06-08 21:40 | ED.PDOC ---
History of Present Illness - General Chief Complaint: Respiratory Problem Time Seen by Provider: 06/08/18 20:59 Source: patient Exam Limitations: clinical condition - History of Present Illness Initial Comments: the patient is a 52-year-old male that is unable to communicate and has contractures secondary to previous injuries. He is ventilator dependent. There was some question of possible aspiration by the shelter staff. The patient is resting comfortably. Lungs are clear. He is satting greater than 95 % on 35% FiO2 which is less than the normal amount of oxygen that he uses area no fever. Vital signs are stable. Timing/Duration: unsure Severity: mild Improving Factors: nothing Allergies/Adverse Reactions: Allergies Aloe [From A&D Zinc Oxide Cream] Allergy (Verified 06/04/18 05:06) Benzyl Alcohol [From A&D Zinc Oxide Cream] Allergy (Verified 06/04/18 05:06) Cetyl Dimethicone [From A&D Zinc Oxide Cream] Allergy (Verified 06/04/18 05:06) Cod Liver Oil [From A&D Zinc Oxide Cream] Allergy (Verified 06/04/18 05:06) Dimethicone [From A&D Zinc Oxide Cream] Allergy (Verified 06/04/18 05:06) Propylene Glycol [From A&D Zinc Oxide Cream] Allergy (Verified 06/04/18 05:06) Vitamin A [From A&D Zinc Oxide Cream] Allergy (Verified 06/04/18 05:06) Zinc Oxide Allergy (Verified 06/04/18 05:06) Home Medications: Ambulatory Orders Acetaminophen [Acetaminophen ER] 650 mg PEG Q4H PRN 11/17/17 Acetylcysteine 2 ml IN BID 11/17/17 Calcitriol [Rocaltrol] 0.5 ml PEG DAILY 11/17/17 Emollient [Hydrophor] 1 oin EX BID 11/17/17 Emollient [Hydrophor] 1 oin EX PRN 11/17/17 Enoxaparin Sodium [Lovenox] 40 mg SUBCU QD 11/17/17 Ipratropium/Albuterol [Duoneb] 3 ml INH Q4H PRN 11/17/17 Ipratropium/Albuterol [Duoneb] 3 ml NEB Q6H 11/17/17 Magnesium Oxide 400 mg PEG DAILY 11/17/17 Pantoprazole Suspension [Protonix] 40 mg PEG DAILY 11/17/17 Potassium Bicarbonate [K-Effervescent] 25 meq PEG DAILY 11/17/17 Nystatin (Topical) [Nystatin] 100,000 unit EX DAILY 12/19/17 Review of Systems - Review of Systems Unable to Obtain Due To: condition, clinical condition Past Medical History (General) - Patient Medical History Hx Seizures: No Hx Stroke: No Hx Dementia: Yes Hx Asthma: No Hx of COPD: - resp failure Hx Cardiac Disorders: No Hx Congestive Heart Failure: No Hx Pacemaker: No Hx Hypertension: No Hx Thyroid Disease: No Hx Diabetes: Yes Hx Gastroesophageal Reflux: Yes Hx Renal Disease: No - Vaccination History Hx Tetanus, Diphtheria Vaccination: No Hx Influenza Vaccination: Yes Hx Pneumococcal Vaccination: Yes Immunizations Up to Date: Yes - Social History Hx Tobacco Use: No Hx Chewing Tobacco Use: No Hx Alcohol Use: No Hx Substance Use: No Hx Substance Use Treatment: No Hx Depression: No Feels Threatened In Home Enviroment: No Feels Threatened In a Relationship: No Hx Physical Abuse: No Hx Emotional Abuse: No Hx Suspected Abuse: No - Activities of Daily Living [facility] (if applicable):: [facility] - Female History Patient is a Female of Child Bearing Age (10 -59 yrs old): No Patient : No Family Medical History - Family History Father Family History: Unknown Living Status: Unknown Physical Exam - Physical Exam General Appearance: Alert, Comfortable, No apparent distress Eye Exam: bilateral normal Ears, Nose, Throat: other - tracheostomy is in place. Respiratory: lungs clear, normal breath sounds, no respiratory distress, no accessory muscle use Cardiovascular/Chest: normal peripheral pulses, no edema Peripheral Pulses: radial,right: 2+, radial,left: 2+ Gastrointestinal/Abdominal: non tender, soft - multiple scars are noted from previous surgeries Rectal Exam: deferred Back Exam: normal inspection Extremity: no pedal edema, no calf tenderness, normal capillary refill, other - the patient's chronic contractures are still in place. Neurologic: alert, normal mood/affect - he is in his normal state. As per usual he grimaces and seems upset when people move him. Skin Exam: normal color Comments: Vital Signs - 24 hr 06/08/18 20:58 Temperature 97.7 F Pulse Rate [ 76 Apical] Respiratory 16 Rate Blood Pressure 113/73 [Left Arm] O2 Sat by Pulse 99 Oximetry Progress - Progress Progress: 06/08/18 21:40 the patient's a 52-year-old male that is ventilator dependent and unable to communicate presenting due to staff concerns for possible aspiration. The patient has been monitored here for a while and is actually saturating well at even lower than his normal oxygen flow. Lung exam is clear. Chest x-ray is clear. I do not believe that the patient has aspirated at this time. He will be allowed to go back to the shelter where his routine care can be resumed. ER warnings are given for any worsening. - EKG/XRAY/CT CT Ordered: No CT Interpretation Call Back: No Departure - Departure Clinical Impression: Ventilator dependent Disposition: Discharge to SNF Condition: Fair Departure Forms: ED Discharge - Pt. Copy, Patient Portal Self Enrollment Diet: other - J-tube feedings Activity: increase activity as tolerated Referrals: FAUZIA REID [Primary Care Provider] - 1-2 Days Home Medications: Ambulatory Orders Acetaminophen [Acetaminophen ER] 650 mg PEG Q4H PRN 11/17/17 Acetylcysteine 2 ml IN BID 11/17/17 Calcitriol [Rocaltrol] 0.5 ml PEG DAILY 11/17/17 Emollient [Hydrophor] 1 oin EX BID 11/17/17 Emollient [Hydrophor] 1 oin EX PRN 11/17/17 Enoxaparin Sodium [Lovenox] 40 mg SUBCU QD 11/17/17 Ipratropium/Albuterol [Duoneb] 3 ml INH Q4H PRN 11/17/17 Ipratropium/Albuterol [Duoneb] 3 ml NEB Q6H 11/17/17 Magnesium Oxide 400 mg PEG DAILY 11/17/17 Pantoprazole Suspension [Protonix] 40 mg PEG DAILY 11/17/17 Potassium Bicarbonate [K-Effervescent] 25 meq PEG DAILY 11/17/17 Nystatin (Topical) [Nystatin] 100,000 unit EX DAILY 12/19/17 Additional Instructions: the patient's a 52-year-old male that is ventilator dependent and unable to communicate presenting due to staff concerns for possible aspiration. The patient has been monitored here for a while and is actually saturating well at even lower than his normal oxygen flow. Lung exam is clear. Chest x-ray is clear. I do not believe that the patient has aspirated at this time. He will be allowed to go back to the shelter where his routine care can be resumed. ER warnings are given for any worsening.
[2018-06-08 21:44] VITALS: TEMP 97.7
[2018-06-08 21:52] VITALS: BP 129/81; O2SAT 100
== END 2018-06-08 21:55 ==
LOC: ER 20:58
DX: J96.90 Respiratory failure, unspecified, unspecified whether with hypoxia or hypercapnia (principal); Z99.11 Dependence on respirator [ventilator] status; Z87.820 Personal history of traumatic brain injury; E11.9 Type 2 diabetes mellitus without complications; K21.9 Gastro-esophageal reflux disease without esophagitis; F03.90 Unspecified dementia, unspecified severity, without behavioral disturbance, psychotic disturbance, mood disturbance, and anxiety; Z79.899 Other long term (current) drug therapy; Z93.1 Gastrostomy status

== ENCOUNTER 2018-06-14 10:27 | Emergency (ER) | payer OTHER ==
[2018-06-14 10:41] VITALS: TEMP 96.8
--- NOTE | 2018-06-14 10:57 | ED.PDOC ---
History of Present Illness - General Chief Complaint: GI Problem Stated Complaint: clogged G-tube Time Seen by Provider: 06/14/18 10:45 Source: patient Exam Limitations: clinical condition - History of Present Illness Initial Comments: the patient is a 52-year-old male presenting to emergency room by EMS sent from the [facility] due to inability of his J-tube which is actually a Smith catheter to flow for his feedings. He has had numerous problems with his feeding tubes and needs to get an official J-tube placed. The catheter was deflated and removed. A 20 Cymraes Smith catheter was put in its place. The tip was cut to allow for freer flow. KUB with Gastrografin was used for placement confirmation. Patient otherwise appears to be in his routine state of health. Allergies/Adverse Reactions: Allergies Aloe [From A&D Zinc Oxide Cream] Allergy (Verified 06/04/18 05:06) Benzyl Alcohol [From A&D Zinc Oxide Cream] Allergy (Verified 06/04/18 05:06) Cetyl Dimethicone [From A&D Zinc Oxide Cream] Allergy (Verified 06/04/18 05:06) Cod Liver Oil [From A&D Zinc Oxide Cream] Allergy (Verified 06/04/18 05:06) Dimethicone [From A&D Zinc Oxide Cream] Allergy (Verified 06/04/18 05:06) Propylene Glycol [From A&D Zinc Oxide Cream] Allergy (Verified 06/04/18 05:06) Vitamin A [From A&D Zinc Oxide Cream] Allergy (Verified 06/04/18 05:06) Zinc Oxide Allergy (Verified 06/04/18 05:06) Home Medications: Ambulatory Orders Acetaminophen [Acetaminophen ER] 650 mg PEG Q4H PRN 11/17/17 Acetylcysteine 2 ml IN BID 11/17/17 Calcitriol [Rocaltrol] 0.5 ml PEG DAILY 11/17/17 Enoxaparin Sodium [Lovenox] 40 mg SUBCU QD 11/17/17 Ipratropium/Albuterol [Duoneb] 3 ml INH Q4H PRN 11/17/17 Ipratropium/Albuterol [Duoneb] 3 ml NEB Q6H 11/17/17 Magnesium Oxide 400 mg PEG DAILY 11/17/17 Pantoprazole Suspension [Protonix] 40 mg PEG DAILY 11/17/17 Potassium Bicarbonate [K-Effervescent] 25 meq PEG BID 11/17/17 Budesonide (Inhalation) [Pulmicort] 0.5 mg IN BID 06/14/18 Cyanocobalamin [B-12] 1,000 mcg PEG DAILY 06/14/18 Ferrous Sulfate 7.5 ml PEG DAILY 06/14/18 Folic Acid 1 mg PEG DAILY 06/14/18 Sodium Chloride 1 gm PEG DAILY 06/14/18 Review of Systems - Review of Systems Unable to Obtain Due To: clinical condition Past Medical History (General) - Patient Medical History Hx Seizures: No Hx Stroke: No Hx Dementia: Yes Hx Asthma: No Hx of COPD: - resp failure Hx Cardiac Disorders: No Hx Congestive Heart Failure: No Hx Pacemaker: No Hx Hypertension: No Hx Thyroid Disease: No Hx Diabetes: Yes Hx Gastroesophageal Reflux: Yes Hx Renal Disease: No - Vaccination History Hx Tetanus, Diphtheria Vaccination: No Hx Influenza Vaccination: Yes Hx Pneumococcal Vaccination: Yes - Social History Hx Tobacco Use: No Hx Chewing Tobacco Use: No Hx Alcohol Use: No Hx Substance Use: No Hx Substance Use Treatment: No Hx Depression: No Hx Physical Abuse: No Hx Emotional Abuse: No Hx Suspected Abuse: No - Activities of Daily Living [facility] (if applicable):: [facility] - Female History Patient : No Family Medical History - Family History Father Family History: Unknown Living Status: Unknown Physical Exam - Physical Exam General Appearance: Alert, Comfortable, No apparent distress Eye Exam: bilateral normal Ears, Nose, Throat: normal pharynx Neck: supple, other - tracheostomy is in place Respiratory: no respiratory distress, no accessory muscle use Cardiovascular/Chest: normal peripheral pulses, no edema Peripheral Pulses: radial,right: 2+, radial,left: 2+ Gastrointestinal/Abdominal: non tender, soft, other - ostomy site appears to be without infection. Rectal Exam: deferred Extremity: other - multiple chronic contractures. No new Neurologic: alert, normal mood/affect, other - he is essentially unable to communicate secondary to chronic deficits Skin Exam: normal color - he does have some mild erythema around his jejunostomy site that is due to require dressings. Comments: Vital Signs - 24 hr 06/14/18 06/14/18 10:33 10:34 Temperature 96.8 F L Pulse Rate [ 97 H Right Ulnar] Respiratory 14 Rate Respiratory 16 Rate [Volume Control Data] Blood Pressure 116/85 [Right Arm] O2 Sat by Pulse 99 Oximetry Progress - Progress Progress: 06/14/18 10:58 the patient's 52-year-old male presenting to the emergency room secondary to difficulty with the flow of his jejunostomy tube. 16 Cymraes Smith catheter was removed and replaced with a 20 Cymraes catheter without difficulty. 9 cc of water were used for the balloon which was tested prior to insertion. X-rays were performed for placement. they need to monitor the surrounding tissue at the jejunostomy site to make sure that the skin is not becoming more irritated due to secretions. Patient will be returned to his long-term care facility. He otherwise appears to be in his routine state of health. again, he does need to be set up for a formal jejunostomy tube replacement as the Smith catheters are much more problematic for long-term use. Departure - Departure Clinical Impression: Jejunostomy malfunction Disposition: Discharge to SNF Condition: Fair Departure Forms: ED Discharge - Pt. Copy, Patient Portal Self Enrollment Diet: other Activity: increase activity as tolerated Referrals: FAUZIA REID [Primary Care Provider] - 1-2 Weeks Home Medications: Ambulatory Orders Acetaminophen [Acetaminophen ER] 650 mg PEG Q4H PRN 11/17/17 Acetylcysteine 2 ml IN BID 11/17/17 Calcitriol [Rocaltrol] 0.5 ml PEG DAILY 11/17/17 Enoxaparin Sodium [Lovenox] 40 mg SUBCU QD 11/17/17 Ipratropium/Albuterol [Duoneb] 3 ml INH Q4H PRN 11/17/17 Ipratropium/Albuterol [Duoneb] 3 ml NEB Q6H 11/17/17 Magnesium Oxide 400 mg PEG DAILY 11/17/17 Pantoprazole Suspension [Protonix] 40 mg PEG DAILY 11/17/17 Potassium Bicarbonate [K-Effervescent] 25 meq PEG BID 11/17/17 Budesonide (Inhalation) [Pulmicort] 0.5 mg IN BID 06/14/18 Cyanocobalamin [B-12] 1,000 mcg PEG DAILY 06/14/18 Ferrous Sulfate 7.5 ml PEG DAILY 06/14/18 Folic Acid 1 mg PEG DAILY 06/14/18 Sodium Chloride 1 gm PEG DAILY 06/14/18 Additional Instructions: the patient's 52-year-old male presenting to the emergency room secondary to difficulty with the flow of his jejunostomy tube. 16 Cymraes Smith catheter was removed and replaced with a 20 Cymraes catheter without difficulty. 9 cc of water were used for the balloon which was tested prior to insertion. X-rays were performed for placement. they need to monitor the surrounding tissue at the jejunostomy site to make sure that the skin is not becoming more irritated due to secretions. Patient will be returned to his long-term care facility. He otherwise appears to be in his routine state of health. again, he does need to be set up for a formal jejunostomy tube replacement as the Smith catheters are much more problematic for long-term use.
--- NOTE | 2018-06-14 11:45 | RAD ---
EXAM DESCRIPTION: KUB CLINICAL HISTORY: poor flow of jutube, tube replaced COMPARISON: June 06, 2018 FINDINGS: IMPRESSION: Single AP supine view of the abdomen shows contrast in a loop of small bowel in the midabdomen. Patient's arm partly to his visualization of the upper abdomen. The J-tube is not well opacified on this image. No air-filled dilated loops of bowel are seen. Electronically signed by: Kain Cruz MD 06/14/2018 11:44 AM CDT
[2018-06-14 12:09] VITALS: BP 118/74; O2SAT 100
== END 2018-06-14 12:09 ==
LOC: ER 10:27
DX: K94.23 Gastrostomy malfunction (principal); F03.90 Unspecified dementia, unspecified severity, without behavioral disturbance, psychotic disturbance, mood disturbance, and anxiety; E11.9 Type 2 diabetes mellitus without complications; K21.9 Gastro-esophageal reflux disease without esophagitis; Y83.8 Other surgical procedures as the cause of abnormal reaction of the patient, or of later complication, without mention of misadventure at the time of the procedure; Z79.899 Other long term (current) drug therapy; Z88.8 Allergy status to other drugs, medicaments and biological substances

== ENCOUNTER → 2018-06-17 | Outpatient (CLI) | payer OTHER | LOC: GOCC 12:26 | PROVIDERS: ATTEND Internal Medicine | DX: L02.91 Cutaneous abscess, unspecified (principal) ==

== ENCOUNTER 2018-06-27 20:24 | Emergency (ER) | payer OTHER ==
--- NOTE | 2018-06-27 20:43 | ED.PDOC ---
History of Present Illness - General Chief Complaint: Abdominal Pain Stated Complaint: J tube clogged Time Seen by Provider: 06/27/18 20:38 Information Source: EMS Exam Limitations: clinical condition - History of Present Illness Initial Comments: Patient comes in with clogged J tube. 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 Patient has had recurrent ER visits for tube difficulty and dislodgment. Today it is clogged. Patient is unable to talk to us or respond to questions. History is per EMS and chart. Abdominal Pain Onset Location: other - unable to obtain secondary to condition, see history above Review of Systems - Review of Systems Review of Systems: 06/27/18 20:43 unable to obtain ROS secondary to clinical condition Past Medical History (General) - Patient Medical History Hx Seizures: No Hx Stroke: No Hx Dementia: Yes Hx Asthma: No Hx of COPD: - resp failure Hx Cardiac Disorders: No Hx Congestive Heart Failure: No Hx Pacemaker: No Hx Hypertension: No Hx Thyroid Disease: No Hx Diabetes: Yes Hx Gastroesophageal Reflux: Yes Hx Renal Disease: No - Vaccination History Hx Tetanus, Diphtheria Vaccination: No Hx Influenza Vaccination: Yes Hx Pneumococcal Vaccination: Yes - Social History Hx Tobacco Use: No Hx Chewing Tobacco Use: No Hx Alcohol Use: No Hx Substance Use: No Hx Substance Use Treatment: No Hx Depression: No Hx Physical Abuse: No Hx Emotional Abuse: No Hx Suspected Abuse: No - Female History Patient : No Family Medical History - Family History Father Family History: Unknown Living Status: Unknown Physical Exam - Physical Exam General Appearance: Frail, Other - thin,male with tracheostomy on vent and with contractures of all extremities Neck: limited range of motion Respiratory: chest non-tender, lungs clear, normal breath sounds Cardiovascular/Chest: normal peripheral pulses, regular rate, rhythm, no edema, no murmur Gastrointestinal/Abdominal: soft, other - J tube in place unable to clear or flush Skin Exam: normal color Progress - Progress Progress: 06/27/18 20:44 attempts to flush tube failed. tube removed and 18 surinamese garcia catheter was placed. Tube placement was verified with gastrografin. Will again request that feeds are followed by 20 cc of water. Departure - Departure Clinical Impression: Jejunostomy malfunction Disposition: Discharge to Home or Self Care Departure Forms: ED Discharge - Pt. Copy, Patient Portal Self Enrollment Instructions: DI for Abdominal Pain-Adult Referrals: FAUZIA REID [Primary Care Provider] - 1-2 Weeks Home Medications: Ambulatory Orders Acetaminophen [Acetaminophen ER] 650 mg PEG Q4H PRN 11/17/17 Acetylcysteine 2 ml IN BID 11/17/17 Calcitriol [Rocaltrol] 0.5 ml PEG DAILY 11/17/17 Enoxaparin Sodium [Lovenox] 40 mg SUBCU QD 11/17/17 Ipratropium/Albuterol [Duoneb] 3 ml INH Q4H PRN 11/17/17 Ipratropium/Albuterol [Duoneb] 3 ml NEB Q6H 11/17/17 Magnesium Oxide 400 mg PEG DAILY 11/17/17 Pantoprazole Suspension [Protonix] 40 mg PEG DAILY 11/17/17 Potassium Bicarbonate [K-Effervescent] 25 meq PEG BID 11/17/17 Budesonide (Inhalation) [Pulmicort] 0.5 mg IN BID 06/14/18 Cyanocobalamin [B-12] 1,000 mcg PEG DAILY 06/14/18 Ferrous Sulfate 7.5 ml PEG DAILY 06/14/18 Folic Acid 1 mg PEG DAILY 06/14/18 Sodium Chloride 1 gm PEG DAILY 06/14/18 Additional Instructions: flush tube with at least 20 cc of water after each feed. Make sure all meds or food clear the external part of tube. Secure tube with binder as previously requested.
[2018-06-27 20:50] VITALS: O2SAT 100
[2018-06-27 21:26] VITALS: BP 114/80; TEMP 98.2
--- NOTE | 2018-06-27 21:32 | RAD ---
EXAM DESCRIPTION: Abdomen 1 View CLINICAL HISTORY: 52 years Male, j-tube placement COMPARISON: KUB June 14, 2018 FINDINGS: Patient rotation mildly limits study. Gastrojejunostomy tube demonstrated with tip in the region of the jejunum. Contrast is present within a few proximal small bowel loops. Visualized bowel gas pattern appears nonobstructive. IMPRESSION: Gastrojejunostomy tube present with distal tip likely in the jejunum. Electronically signed by: Noah Oh MD 06/27/2018 9:31 PM CDT
== END 2018-06-27 21:34 | disposition home or self-care (01) ==
LOC: ER 20:24
DX: K94.13 Enterostomy malfunction (principal); J96.10 Chronic respiratory failure, unspecified whether with hypoxia or hypercapnia; F03.90 Unspecified dementia, unspecified severity, without behavioral disturbance, psychotic disturbance, mood disturbance, and anxiety; E11.9 Type 2 diabetes mellitus without complications; K21.9 Gastro-esophageal reflux disease without esophagitis; Y83.8 Other surgical procedures as the cause of abnormal reaction of the patient, or of later complication, without mention of misadventure at the time of the procedure; Z79.899 Other long term (current) drug therapy

== ENCOUNTER → 2018-07-01 | Outpatient (CLI) | payer OTHER | LOC: GOCC 10:22 | PROVIDERS: ATTEND Internal Medicine | DX: K94.22 Gastrostomy infection (principal) ==

== ENCOUNTER 2018-07-07 05:07 | Emergency (ER) | payer OTHER ==
--- NOTE | 2018-07-07 05:48 | ED.PDOC ---
History of Present Illness - General Chief Complaint: GI Problem Stated Complaint: peg tube is clogged Time Seen by Provider: 07/07/18 05:45 Source: RN notes reviewed Exam Limitations: clinical condition - History of Present Illness Initial Comments: THIS PATIENT IS SENT FROM [facility] BECAUSE HIS G TUBE IS CLOGGED. Timing/Duration: unsure Severity: moderate Improving Factors: nothing Worsening Factors: nothing Associated Symptoms: denies symptoms Allergies/Adverse Reactions: Allergies Aloe [From A&D Zinc Oxide Cream] Allergy (Verified 06/04/18 05:06) Benzyl Alcohol [From A&D Zinc Oxide Cream] Allergy (Verified 06/04/18 05:06) Cetyl Dimethicone [From A&D Zinc Oxide Cream] Allergy (Verified 06/04/18 05:06) Cod Liver Oil [From A&D Zinc Oxide Cream] Allergy (Verified 06/04/18 05:06) Dimethicone [From A&D Zinc Oxide Cream] Allergy (Verified 06/04/18 05:06) Propylene Glycol [From A&D Zinc Oxide Cream] Allergy (Verified 06/04/18 05:06) Vitamin A [From A&D Zinc Oxide Cream] Allergy (Verified 06/04/18 05:06) Zinc Oxide Allergy (Verified 06/04/18 05:06) Home Medications: Ambulatory Orders Acetaminophen [Acetaminophen ER] 650 mg PEG Q4H PRN 11/17/17 Acetylcysteine 2 ml IN BID 11/17/17 Calcitriol [Rocaltrol] 0.5 ml PEG DAILY 11/17/17 Enoxaparin Sodium [Lovenox] 40 mg SUBCU QD 11/17/17 Ipratropium/Albuterol [Duoneb] 3 ml INH Q4H PRN 11/17/17 Ipratropium/Albuterol [Duoneb] 3 ml NEB Q6H 11/17/17 Magnesium Oxide 400 mg PEG DAILY 11/17/17 Pantoprazole Suspension [Protonix] 40 mg PEG DAILY 11/17/17 Potassium Bicarbonate [K-Effervescent] 25 meq PEG BID 11/17/17 Budesonide (Inhalation) [Pulmicort] 0.5 mg IN BID 06/14/18 Cyanocobalamin [B-12] 1,000 mcg PEG DAILY 06/14/18 Ferrous Sulfate 7.5 ml PEG DAILY 06/14/18 Folic Acid 1 mg PEG DAILY 06/14/18 Sodium Chloride 1 gm PEG DAILY 06/14/18 Review of Systems - Review of Systems Unable to Obtain Due To: condition, intubated Past Medical History (General) - Patient Medical History Hx Seizures: No Hx Stroke: No Hx Dementia: Yes Hx Asthma: No Hx of COPD: - resp failure Hx Cardiac Disorders: No Hx Congestive Heart Failure: No Hx Pacemaker: No Hx Hypertension: No Hx Thyroid Disease: No Hx Diabetes: Yes Hx Gastroesophageal Reflux: Yes Hx Renal Disease: No - Vaccination History Hx Tetanus, Diphtheria Vaccination: No Hx Influenza Vaccination: Yes Hx Pneumococcal Vaccination: Yes - Social History Hx Tobacco Use: No Hx Chewing Tobacco Use: No Hx Alcohol Use: No Hx Substance Use: No Hx Substance Use Treatment: No Hx Depression: No Hx Physical Abuse: No Hx Emotional Abuse: No Hx Suspected Abuse: No - Female History Patient : No Family Medical History - Family History Father Family History: Unknown Living Status: Unknown Physical Exam - Physical Exam General Appearance: Agitated Respiratory: lungs clear, normal breath sounds Cardiovascular/Chest: regular rate, rhythm, no edema, no gallop Gastrointestinal/Abdominal: normal bowel sounds, non tender, soft, no organomegaly, other - G TUBE ON THE RIGHT HEMIABDOMEN Rectal Exam: deferred Extremity: normal range of motion Neurologic: no motor/sensory deficits, normal mood/affect Skin Exam: normal color Lymphatic: no adenopathy Procedures - Additional Procedures Additional Procedures: gastric tube replacement - ATTEMPTED TO UNCLOGG THE EXISTING G TUBE WHICH WAS A MURRAY CATHETER. BUT THIS WAS UNSUCCESFUL. THE EXISTING TUBE WAS REMOVED AND A # 20 HALYARD FEEDING TUBE WAS PLACED W/O PROBLEM. GASTROGRAGIN WAS INJECTED AND A X-RAY WAS OBTAINED. GASTRIC FOLDS ARE NOTED. Departure - Departure Clinical Impression: Clogged feeding tube Feeding tube dysfunction Qualifiers: Encounter type: initial encounter Qualified Code(s): T85.598A - Other mechanical complication of other gastrointestinal prosthetic devices, implants and grafts, initial encounter Time of Disposition: 06:07 Disposition: Discharge to SNF Condition: Fair Departure Forms: ED Discharge - Pt. Copy, Patient Portal Self Enrollment Instructions: How to Care for Your PEG Tube Diet: resume usual diet Referrals: FAUZIA REID [Primary Care Provider] - 1-2 Weeks Home Medications: Ambulatory Orders Acetaminophen [Acetaminophen ER] 650 mg PEG Q4H PRN 11/17/17 Acetylcysteine 2 ml IN BID 11/17/17 Calcitriol [Rocaltrol] 0.5 ml PEG DAILY 11/17/17 Enoxaparin Sodium [Lovenox] 40 mg SUBCU QD 11/17/17 Ipratropium/Albuterol [Duoneb] 3 ml INH Q4H PRN 11/17/17 Ipratropium/Albuterol [Duoneb] 3 ml NEB Q6H 11/17/17 Magnesium Oxide 400 mg PEG DAILY 11/17/17 Pantoprazole Suspension [Protonix] 40 mg PEG DAILY 11/17/17 Potassium Bicarbonate [K-Effervescent] 25 meq PEG BID 11/17/17 Budesonide (Inhalation) [Pulmicort] 0.5 mg IN BID 06/14/18 Cyanocobalamin [B-12] 1,000 mcg PEG DAILY 06/14/18 Ferrous Sulfate 7.5 ml PEG DAILY 06/14/18 Folic Acid 1 mg PEG DAILY 06/14/18 Sodium Chloride 1 gm PEG DAILY 06/14/18
[2018-07-07 05:55] VITALS: O2SAT 100
[2018-07-07 06:45] VITALS: BP 138/63; TEMP 98.5
--- NOTE | 2018-07-07 07:47 | RAD ---
EXAM DESCRIPTION: Abdomen 1 View CLINICAL HISTORY: g-tube placement FINDINGS/ IMPRESSION: Single radiograph after injection of contrast through the enteric tube. Contrast is present within jejunum. No evidence of extraluminal extravasation of contrast No evidence of mechanical bowel obstruction or other diagnostic bowel abnormality Electronically signed by: Ja Baez MD 07/07/2018 7:45 AM CDT
== END 2018-07-07 06:35 ==
LOC: ER 05:07
DX: T85.598A Other mechanical complication of other gastrointestinal prosthetic devices, implants and grafts, initial encounter (principal); J96.10 Chronic respiratory failure, unspecified whether with hypoxia or hypercapnia; F03.90 Unspecified dementia, unspecified severity, without behavioral disturbance, psychotic disturbance, mood disturbance, and anxiety; E11.9 Type 2 diabetes mellitus without complications; K21.9 Gastro-esophageal reflux disease without esophagitis; Z79.899 Other long term (current) drug therapy; Z88.8 Allergy status to other drugs, medicaments and biological substances

== ENCOUNTER 2018-08-31 17:18 | Emergency (ER) | payer OTHER ==
[2018-08-31 19:39] VITALS: O2SAT 100
--- NOTE | 2018-08-31 19:40 | RAD ---
EXAM DESCRIPTION: KUB CLINICAL HISTORY: 52 years Male check g tube COMPARISON: 07/07/2018. TECHNIQUE: Single view of the abdomen. FINDINGS: A single film of the abdomen was obtained after injecting contrast through the jejunostomy tube. In comparison to the previous study, the tube is now visualized projecting over the right midabdomen which was visualized projecting over the left midabdomen on the previous study. Contrast injection through the tube shows filling of small bowel loops. There is some contrast visualized at the tube entry site which is presumably from contamination. Clinical correlation to exclude the possibility of tube leakage at the skin site. IMPRESSION: The J-tube tip is visualized within loops of the jejunum. There is some contrast visualized around the tube at the skin entry site which is presumably from contamination. Clinical correlation recommended. Electronically signed by: Aki Barreto MD 08/31/2018 7:39 PM MASSAGE COORDINATOR
--- NOTE | 2018-08-31 20:11 | ED.PDOC ---
History of Present Illness - General Chief Complaint: General Stated Complaint: J tube leaking Time Seen by Provider: 08/31/18 19:00 Source: patient Exam Limitations: clinical condition - vent support,non verbal - History of Present Illness Initial Comments: Brown Salamanca 52 y/o male brought by EMS for recheck of feeding leakage .He has history of anoxic encephalopathy resident at [facility]. Timing/Duration: 1 week Severity: moderate Improving Factors: nothing Worsening Factors: nothing Allergies/Adverse Reactions: Allergies Aloe [From A&D Zinc Oxide Cream] Allergy (Verified 08/31/18 17:43) Benzyl Alcohol [From A&D Zinc Oxide Cream] Allergy (Verified 08/31/18 17:43) Cetyl Dimethicone [From A&D Zinc Oxide Cream] Allergy (Verified 08/31/18 17:43) Cod Liver Oil [From A&D Zinc Oxide Cream] Allergy (Verified 08/31/18 17:43) Dimethicone [From A&D Zinc Oxide Cream] Allergy (Verified 08/31/18 17:43) Propylene Glycol [From A&D Zinc Oxide Cream] Allergy (Verified 08/31/18 17:43) Vitamin A [From A&D Zinc Oxide Cream] Allergy (Verified 08/31/18 17:43) Zinc Oxide Allergy (Verified 08/31/18 17:43) Home Medications: Ambulatory Orders Acetaminophen [Acetaminophen ER] 650 mg PEG Q4H PRN 11/17/17 Acetylcysteine 2 ml IN BID 11/17/17 Calcitriol [Rocaltrol] 0.5 ml PEG DAILY 11/17/17 Enoxaparin Sodium [Lovenox] 40 mg SUBCU QD 11/17/17 Ipratropium/Albuterol [Duoneb] 3 ml INH Q4H PRN 11/17/17 Ipratropium/Albuterol [Duoneb] 3 ml NEB Q6H 11/17/17 Magnesium Oxide 400 mg PEG DAILY 11/17/17 Pantoprazole Suspension [Protonix] 40 mg PEG DAILY 11/17/17 Potassium Bicarbonate [K-Effervescent] 25 meq PEG BID 11/17/17 Budesonide (Inhalation) [Pulmicort] 0.5 mg IN BID 06/14/18 Cyanocobalamin [B-12] 1,000 mcg PEG DAILY 06/14/18 Ferrous Sulfate 7.5 ml PEG DAILY 06/14/18 Folic Acid 1 mg PEG DAILY 06/14/18 Sodium Chloride 1 gm PEG DAILY 06/14/18 Cyclobenzaprine HCl 10 mg PO TID 08/31/18 Sulfamethoxazole-Trimethoprim [Bactrim Ds 800-160 mg] 1 tablet PEG BID 08/31/18 Review of Systems - Review of Systems Unable to Obtain Due To: condition, clinical condition - non verbal Past Medical History (General) - Patient Medical History Hx Seizures: No Hx Stroke: No Hx Dementia: Yes Hx Asthma: No Hx of COPD: - resp failure Hx Cardiac Disorders: No Hx Congestive Heart Failure: No Hx Pacemaker: No Hx Hypertension: No Hx Thyroid Disease: No Hx Diabetes: Yes Hx Gastroesophageal Reflux: Yes Hx Renal Disease: No Surgical History: other - tracheostomy,PEG tube - Vaccination History Hx Tetanus, Diphtheria Vaccination: No Hx Influenza Vaccination: Yes Hx Pneumococcal Vaccination: Yes - Social History Hx Tobacco Use: No Hx Chewing Tobacco Use: No Hx Alcohol Use: No Hx Substance Use: No Hx Substance Use Treatment: No Hx Depression: No Hx Physical Abuse: No Hx Emotional Abuse: No Hx Suspected Abuse: No - Activities of Daily Living [facility]isted [facility] (if applicable):: [facility] - Female History Patient : No Family Medical History - Family History Father Family History: Unknown Living Status: Unknown Physical Exam - Physical Exam General Appearance: Other - awake Eye Exam: bilateral other - not evaluated but PERRL bilaterally Neck: other - contracture deformity tsheostomy tube patent Respiratory: decreased breath sounds, other - ventilalatory support Cardiovascular/Chest: normal peripheral pulses, regular rate, rhythm, no murmur Peripheral Pulses: radial,right: 2+, radial,left: 2+ Gastrointestinal/Abdominal: other - midline scar abdomen with skin erythema around j -tube Back Exam: other - contcture Extremity: other - contracture deformity upper and lower extremities Neurologic: other - coma nunez Skin Exam: normal color, warm/dry Progress - Progress Progress: 08/31/18 20:49 Vital Signs - 8 hr 08/31/18 08/31/18 08/31/18 17:18 17:36 18:34 Temperature 97.9 F 97.9 F Pulse Rate [ 97 H 105 H Right Posterior Tibial] Respiratory 23 23 Rate Respiratory 23 Rate [Volume Control Data] Blood Pressure 102/81 143/78 [Right Arm] O2 Sat by Pulse 100 99 Oximetry 08/31/18 19:36 Temperature Pulse Rate [ 102 H Right Posterior Tibial] Respiratory 16 Rate Respiratory Rate [Volume Control Data] Blood Pressure 121/77 [Right Arm] O2 Sat by Pulse 100 Oximetry - EKG/XRAY/CT XRAY: j-tube visualized within loops of jejunum no extravastion intrabdominally except around tube skin entry site Departure - Departure Clinical Impression: Skin breakdown at gastrostomy tube site, S/P jejunostomy, Ventilator dependent, PVS (persistent vegetative state), Contracture of joint of upper arm, Flexion contracture of joint of lower leg Time of Disposition: 21:03 Disposition: Discharge to SNF Condition: Poor Departure Forms: ED Discharge - Pt. Copy, Patient Portal Self Enrollment Referrals: FAUZIA REID [Primary Care Provider] - 1-2 Weeks Home Medications: Ambulatory Orders Acetaminophen [Acetaminophen ER] 650 mg PEG Q4H PRN 11/17/17 Acetylcysteine 2 ml IN BID 11/17/17 Calcitriol [Rocaltrol] 0.5 ml PEG DAILY 11/17/17 Enoxaparin Sodium [Lovenox] 40 mg SUBCU QD 11/17/17 Ipratropium/Albuterol [Duoneb] 3 ml INH Q4H PRN 11/17/17 Ipratropium/Albuterol [Duoneb] 3 ml NEB Q6H 11/17/17 Magnesium Oxide 400 mg PEG DAILY 11/17/17 Pantoprazole Suspension [Protonix] 40 mg PEG DAILY 11/17/17 Potassium Bicarbonate [K-Effervescent] 25 meq PEG BID 11/17/17 Budesonide (Inhalation) [Pulmicort] 0.5 mg IN BID 06/14/18 Cyanocobalamin [B-12] 1,000 mcg PEG DAILY 06/14/18 Ferrous Sulfate 7.5 ml PEG DAILY 06/14/18 Folic Acid 1 mg PEG DAILY 06/14/18 Sodium Chloride 1 gm PEG DAILY 06/14/18 Cyclobenzaprine HCl 10 mg PO TID 08/31/18 Sulfamethoxazole-Trimethoprim [Bactrim Ds 800-160 mg] 1 tablet PEG BID 08/31/18 Additional Instructions: Apply Solosite Gel on skin erythema and Miconazole cream along the enterostomy site AM/PM for 12 days;Maalox 20 ml. per J-tube tid for 6 weeks;Please fax copy of KUB report to Dr. Tony Mendes office in [place];continue with rest of medications
[2018-08-31] MEDS ORDERED: ALUM & MAG HYDROX-SIMETHICONE 30 ML UD GT ONE (20:48)
[2018-08-31] MEDS ORDERED: ALUM & MAG HYDROX-SIMETHICONE 30 ML UD ONE (20:49)
[2018-08-31 21:13] VITALS: BP 118/84
[2018-08-31 21:45] VITALS: TEMP 96.9
== END 2018-08-31 21:45 ==
LOC: ER 17:18
DX: K94.29 Other complications of gastrostomy (principal); R40.3 Persistent vegetative state; M24.50 Contracture, unspecified joint; E11.9 Type 2 diabetes mellitus without complications; K21.9 Gastro-esophageal reflux disease without esophagitis; F03.90 Unspecified dementia, unspecified severity, without behavioral disturbance, psychotic disturbance, mood disturbance, and anxiety; Z99.11 Dependence on respirator [ventilator] status; Y83.8 Other surgical procedures as the cause of abnormal reaction of the patient, or of later complication, without mention of misadventure at the time of the procedure; Z79.899 Other long term (current) drug therapy; Z88.8 Allergy status to other drugs, medicaments and biological substances

== ENCOUNTER 2018-09-24 17:11 | Emergency (ER) | payer OTHER ==
--- NOTE | 2018-09-24 17:46 | ED.PDOC ---
History of Present Illness - General Chief Complaint: General Stated Complaint: J-tube pulled out Time Seen by Provider: 09/24/18 17:43 Source: other - alf staff - History of Present Illness Initial Comments: Patient presents from [facility] after staff reported that he pulled his J-tube out. This has happened multiple times before. Patient is chronically intubated. No other history is available. Timing/Duration: 1-3 hours Severity: mild Allergies/Adverse Reactions: Allergies Aloe [From A&D Zinc Oxide Cream] Allergy (Verified 08/31/18 17:43) Benzyl Alcohol [From A&D Zinc Oxide Cream] Allergy (Verified 08/31/18 17:43) Cetyl Dimethicone [From A&D Zinc Oxide Cream] Allergy (Verified 08/31/18 17:43) Cod Liver Oil [From A&D Zinc Oxide Cream] Allergy (Verified 08/31/18 17:43) Dimethicone [From A&D Zinc Oxide Cream] Allergy (Verified 08/31/18 17:43) Propylene Glycol [From A&D Zinc Oxide Cream] Allergy (Verified 08/31/18 17:43) Vitamin A [From A&D Zinc Oxide Cream] Allergy (Verified 08/31/18 17:43) Zinc Oxide Allergy (Verified 08/31/18 17:43) Home Medications: Ambulatory Orders Acetaminophen [Acetaminophen ER] 650 mg PEG Q4H PRN 11/17/17 Acetylcysteine 2 ml IN BID 11/17/17 Calcitriol [Rocaltrol] 0.5 ml PEG DAILY 11/17/17 Enoxaparin Sodium [Lovenox] 40 mg SUBCU QD 11/17/17 Ipratropium/Albuterol [Duoneb] 3 ml INH Q4H PRN 11/17/17 Ipratropium/Albuterol [Duoneb] 3 ml NEB Q6H 11/17/17 Magnesium Oxide 400 mg PEG DAILY 11/17/17 Pantoprazole Suspension [Protonix] 40 mg PEG DAILY 11/17/17 Potassium Bicarbonate [K-Effervescent] 25 meq PEG BID 11/17/17 Budesonide (Inhalation) [Pulmicort] 0.5 mg IN BID 06/14/18 Cyanocobalamin [B-12] 1,000 mcg PEG DAILY 06/14/18 Ferrous Sulfate 7.5 ml PEG DAILY 06/14/18 Folic Acid 1 mg PEG DAILY 06/14/18 Sodium Chloride 1 gm PEG DAILY 06/14/18 Cyclobenzaprine HCl 10 mg PO TID 08/31/18 Sulfamethoxazole-Trimethoprim [Bactrim Ds 800-160 mg] 1 tablet PEG BID 08/31/18 Review of Systems - Review of Systems Unable to Obtain Due To: intubated Past Medical History (General) - Patient Medical History Hx Seizures: No Hx Stroke: No Hx Dementia: Yes Hx Asthma: No Hx of COPD: - resp failure Hx Cardiac Disorders: No Hx Congestive Heart Failure: No Hx Pacemaker: No Hx Hypertension: No Hx Thyroid Disease: No Hx Diabetes: Yes Hx Gastroesophageal Reflux: Yes Hx Renal Disease: No - Vaccination History Hx Tetanus, Diphtheria Vaccination: No Hx Influenza Vaccination: Yes Hx Pneumococcal Vaccination: Yes - Social History Hx Tobacco Use: No Hx Chewing Tobacco Use: No Hx Alcohol Use: No Hx Substance Use: No Hx Substance Use Treatment: No Hx Depression: No Hx Physical Abuse: No Hx Emotional Abuse: No Hx Suspected Abuse: No - Female History Patient : No Family Medical History - Family History Father Family History: Unknown Living Status: Unknown Physical Exam - Physical Exam General Appearance: No apparent distress Respiratory: lungs clear, other - trache tube in place Cardiovascular/Chest: regular rate, rhythm Gastrointestinal/Abdominal: other - J-tube absent. Entrance site is patent with no purulence. Progress - Progress Progress: 09/24/18 17:46 Smith placed into J-tube site. Gastrograffin injected into tube. Radiographs show proper movement of gastrograffin through the jejenum. Departure - Departure Clinical Impression: Jejunostomy tube fell out Disposition: Discharge to SNF Condition: Good Departure Forms: ED Discharge - Pt. Copy, Patient Portal Self Enrollment Diet: resume usual diet Activity: other - as per primary care doctor Referrals: FAUZIA REID [Primary Care Provider] - 1-2 Weeks Home Medications: Ambulatory Orders Acetaminophen [Acetaminophen ER] 650 mg PEG Q4H PRN 11/17/17 Acetylcysteine 2 ml IN BID 11/17/17 Calcitriol [Rocaltrol] 0.5 ml PEG DAILY 11/17/17 Enoxaparin Sodium [Lovenox] 40 mg SUBCU QD 11/17/17 Ipratropium/Albuterol [Duoneb] 3 ml INH Q4H PRN 11/17/17 Ipratropium/Albuterol [Duoneb] 3 ml NEB Q6H 11/17/17 Magnesium Oxide 400 mg PEG DAILY 11/17/17 Pantoprazole Suspension [Protonix] 40 mg PEG DAILY 11/17/17 Potassium Bicarbonate [K-Effervescent] 25 meq PEG BID 11/17/17 Budesonide (Inhalation) [Pulmicort] 0.5 mg IN BID 06/14/18 Cyanocobalamin [B-12] 1,000 mcg PEG DAILY 06/14/18 Ferrous Sulfate 7.5 ml PEG DAILY 06/14/18 Folic Acid 1 mg PEG DAILY 06/14/18 Sodium Chloride 1 gm PEG DAILY 06/14/18 Cyclobenzaprine HCl 10 mg PO TID 08/31/18 Sulfamethoxazole-Trimethoprim [Bactrim Ds 800-160 mg] 1 tablet PEG BID 08/31/18
[2018-09-24 17:48] VITALS: O2SAT 100
--- NOTE | 2018-09-24 18:10 | RAD ---
EXAM DESCRIPTION: KUB CLINICAL HISTORY: Check J-tube COMPARISON: None. FINDINGS: Single supine view of the abdomen was submitted. Contrast introduced via the percutaneous jejunostomy opacifies small bowel with no evidence of extravasation. Lung bases are clear. No evidence of obstruction. There is no evidence of bowel obstruction. There is no abnormal calcification within the abdomen. There is no acute osseous process visualized. IMPRESSION: Apparently appropriate position of the jejunostomy. Electronically signed by: Nomi Martinez 09/24/2018 6:09 PM [facility]
[2018-09-24 18:40] VITALS: BP 105/73; TEMP 97.2
== END 2018-09-24 18:35 ==
LOC: ER 17:11
DX: Z43.4 Encounter for attention to other artificial openings of digestive tract (principal); F03.90 Unspecified dementia, unspecified severity, without behavioral disturbance, psychotic disturbance, mood disturbance, and anxiety; K21.9 Gastro-esophageal reflux disease without esophagitis; E11.9 Type 2 diabetes mellitus without complications; J96.10 Chronic respiratory failure, unspecified whether with hypoxia or hypercapnia; Z99.11 Dependence on respirator [ventilator] status; Z93.0 Tracheostomy status; Z79.899 Other long term (current) drug therapy; Z88.8 Allergy status to other drugs, medicaments and biological substances

== ENCOUNTER 2018-11-02 17:21 | Emergency (ER) | payer OTHER ==
[2018-11-02 17:55] VITALS: TEMP 97.3
--- NOTE | 2018-11-02 18:06 | ED.PDOC ---
History of Present Illness - General Chief Complaint: General Stated Complaint: g-tube problem Time Seen by Provider: 11/02/18 18:02 Source: EMS notes reviewed, [facility] records Exam Limitations: clinical condition - History of Present Illness Initial Comments: The patient is a long-term ventilator patient that he is unable to effectively communicate presented to the emergency room from the long-term care facility secondary to his feeding tube which is essentially a Smith catheter pulling all the way down to the home. Additionally there reporting that his tube feeds are now being digested very well. He does not appear to be in any distress. Smith catheter is in place at the jejunostomy site. No evidence of any infection. No evidence of significant irritation. Upon initial evaluation of the catheter it was obvious that the small bowel had accordianed up around the catheter between the bulb and the jejunostomy entrance.no fluid was able to be removed from the bulb in order to allow the bowel to extend back out. Gradually I was able to image the catheter back but was never able to remove fluid from the bulb. Once the bulb was at the jejunostomy entrance and needle had been used to woods the bulb to allow for its removal. Ultrasound was done to confirm its placement prior. a 20 Afghan Smith catheter was put back in place with 8 cc of saline. The tip was cut off to allow for better passage of tube feeds, and the bulb was tested subsequently. Gastrografin was used to confirm placement. X-ray imaging was performed for this. Patient tolerated this well. Allergies/Adverse Reactions: Allergies Aloe [From A&D Zinc Oxide Cream] Allergy (Verified 08/31/18 17:43) Benzyl Alcohol [From A&D Zinc Oxide Cream] Allergy (Verified 08/31/18 17:43) Cetyl Dimethicone [From A&D Zinc Oxide Cream] Allergy (Verified 08/31/18 17:43) Cod Liver Oil [From A&D Zinc Oxide Cream] Allergy (Verified 08/31/18 17:43) Dimethicone [From A&D Zinc Oxide Cream] Allergy (Verified 08/31/18 17:43) Propylene Glycol [From A&D Zinc Oxide Cream] Allergy (Verified 08/31/18 17:43) Vitamin A [From A&D Zinc Oxide Cream] Allergy (Verified 08/31/18 17:43) Zinc Oxide Allergy (Verified 08/31/18 17:43) Home Medications: Ambulatory Orders Acetaminophen [Acetaminophen ER] 650 mg PEG Q4H PRN 11/17/17 Acetylcysteine 2 ml IN BID 11/17/17 Calcitriol [Rocaltrol] 0.5 ml PEG DAILY 11/17/17 Enoxaparin Sodium [Lovenox] 40 mg SUBCU QD 11/17/17 Ipratropium/Albuterol [Duoneb] 3 ml INH Q4H PRN 11/17/17 Ipratropium/Albuterol [Duoneb] 3 ml NEB Q6H 11/17/17 Magnesium Oxide 400 mg PEG DAILY 11/17/17 Pantoprazole Suspension [Protonix] 40 mg PEG DAILY 11/17/17 Potassium Bicarbonate [K-Effervescent] 25 meq PEG BID 11/17/17 Budesonide (Inhalation) [Pulmicort] 0.5 mg IN BID 06/14/18 Cyanocobalamin [B-12] 1,000 mcg PEG DAILY 06/14/18 Ferrous Sulfate 7.5 ml PEG DAILY 06/14/18 Folic Acid 1 mg PEG DAILY 06/14/18 Sodium Chloride 1 gm PEG DAILY 06/14/18 Cyclobenzaprine HCl 10 mg PO TID 08/31/18 Review of Systems - Review of Systems Review of Systems: 11/02/18 18:08 unable to get review of systems secondary to clinical condition. Past Medical History (General) - Patient Medical History Hx Seizures: No Hx Stroke: No Hx Dementia: Yes Hx Asthma: No Hx of COPD: - resp failure Hx Cardiac Disorders: No Hx Congestive Heart Failure: No Hx Pacemaker: No Hx Hypertension: No Hx Thyroid Disease: No Hx Diabetes: Yes Hx Gastroesophageal Reflux: Yes Hx Renal Disease: No - Vaccination History Hx Tetanus, Diphtheria Vaccination: No Hx Influenza Vaccination: Yes Hx Pneumococcal Vaccination: Yes - Social History Hx Tobacco Use: No Hx Chewing Tobacco Use: No Hx Alcohol Use: No Hx Substance Use: No Hx Substance Use Treatment: No Hx Depression: No Hx Physical Abuse: No Hx Emotional Abuse: No Hx Suspected Abuse: No - Female History Patient : No Family Medical History - Family History Father Family History: Unknown Living Status: Unknown Physical Exam - Physical Exam General Appearance: Alert, No apparent distress Eye Exam: bilateral normal Ears, Nose, Throat: normal pharynx Neck: supple, other - tracheostomy in place Respiratory: lungs clear, normal breath sounds - on ventilator, no respiratory distress, no accessory muscle use Cardiovascular/Chest: normal peripheral pulses, regular rate, rhythm, no edema Peripheral Pulses: radial,right: 2+, radial,left: 2+ Gastrointestinal/Abdominal: non tender - multiple scars present. Jejunostomy tube in place., soft Rectal Exam: deferred Back Exam: no CVA tenderness, no vertebral tenderness Extremity: non-tender, no pedal edema, other - chronic contractures present. Neurologic: alert, normal mood/affect - for the patient Skin Exam: normal color Comments: Vital Signs - 24 hr 11/02/18 11/02/18 17:46 18:00 Temperature 97.3 F L Pulse Rate [ 92 H Left Brachial] Respiratory 18 Rate Respiratory 33 H Rate [Volume Control Data] Blood Pressure 95/48 [Left Arm] O2 Sat by Pulse 93 L 92 L Oximetry Progress - Progress Progress: 11/02/18 18:13 the patient's a 53-year-old male presenting to the emergency room secondary to difficulties with his Smith catheter that is sufficing as a jejunostomy tube. catheter had to be removed because the bulb would not drain. New 20 Afghan Smith catheter has been placed. The bulb needs to be kept close to the jejunostomy entrance site otherwise small bowel will accordian up the length of the catheter between the bulb and the jejunostomy entrance. This essentially means the tube feeds are bypassing a significant length of small bowel rather than being digested. he would be much better served with a proper jejunostomy tube if the facility can acquire one. Transferring back for continuation of care. Departure - Departure Clinical Impression: Jejunostomy malfunction Disposition: Discharge to SNF Condition: Fair Departure Forms: ED Discharge - Pt. Copy, Patient Portal Self Enrollment Diet: other Referrals: FAUZIA REID [Primary Care Provider] - 1-2 Weeks Home Medications: Ambulatory Orders Acetaminophen [Acetaminophen ER] 650 mg PEG Q4H PRN 11/17/17 Acetylcysteine 2 ml IN BID 11/17/17 Calcitriol [Rocaltrol] 0.5 ml PEG DAILY 11/17/17 Enoxaparin Sodium [Lovenox] 40 mg SUBCU QD 11/17/17 Ipratropium/Albuterol [Duoneb] 3 ml INH Q4H PRN 11/17/17 Ipratropium/Albuterol [Duoneb] 3 ml NEB Q6H 11/17/17 Magnesium Oxide 400 mg PEG DAILY 11/17/17 Pantoprazole Suspension [Protonix] 40 mg PEG DAILY 11/17/17 Potassium Bicarbonate [K-Effervescent] 25 meq PEG BID 11/17/17 Budesonide (Inhalation) [Pulmicort] 0.5 mg IN BID 06/14/18 Cyanocobalamin [B-12] 1,000 mcg PEG DAILY 06/14/18 Ferrous Sulfate 7.5 ml PEG DAILY 06/14/18 Folic Acid 1 mg PEG DAILY 06/14/18 Sodium Chloride 1 gm PEG DAILY 06/14/18 Cyclobenzaprine HCl 10 mg PO TID 08/31/18 Additional Instructions: the patient's a 53-year-old male presenting to the emergency room secondary to difficulties with his Smith catheter that is sufficing as a jejunostomy tube. catheter had to be removed because the bulb would not drain. New 20 Afghan Smith catheter has been placed. The bulb needs to be kept close to the jejunostomy entrance site otherwise small bowel will accordian up the length of the catheter between the bulb and the jejunostomy entrance. This essentially means the tube feeds are bypassing a significant length of small bowel rather than being digested. he would be much better served with a proper jejunostomy tube if the facility can acquire one. Transferring back for continuation of care.
--- NOTE | 2018-11-02 18:19 | RAD ---
PROCEDURE: XR Abdomen, 1 View CLINICAL INDICATION: The patient is 53 years years old, Male; g-tube placement TECHNIQUE: Frontal supine view of the abdomen/pelvis. COMPARISON: No relevant prior studies available. FINDINGS: LOWER THORAX: Visualized lung bases appear clear. GASTROINTESTINAL TRACT: No evidence of intestinal obstruction. ORGANS: No evidence of organomegaly. BONES/JOINTS: There is no evidence of acute fracture, osseous destruction or osteoblastic changes. TUBES, LINES AND DEVICES: The feeding tube terminates in the jejunum through which contrast has been instilled opacifying several loops of jejunum without evidence of extraluminal contrast. OTHER FINDINGS: No significant abnormal intra-abdominal calcifications. IMPRESSION: No acute findings. Electronically signed by: Jennifer Taveras MD 11/02/2018 6:17 PM [employer]
[2018-11-02 18:36] VITALS: BP 101/60; O2SAT 95
== END 2018-11-02 18:36 ==
LOC: ER 17:21
DX: K94.13 Enterostomy malfunction (principal); F03.90 Unspecified dementia, unspecified severity, without behavioral disturbance, psychotic disturbance, mood disturbance, and anxiety; K21.9 Gastro-esophageal reflux disease without esophagitis; E11.9 Type 2 diabetes mellitus without complications; J96.10 Chronic respiratory failure, unspecified whether with hypoxia or hypercapnia; Z99.11 Dependence on respirator [ventilator] status; Y83.8 Other surgical procedures as the cause of abnormal reaction of the patient, or of later complication, without mention of misadventure at the time of the procedure; Z79.899 Other long term (current) drug therapy; Z88.8 Allergy status to other drugs, medicaments and biological substances

== ENCOUNTER 2018-11-20 10:54 | Emergency (ER) | payer OTHER ==
[2018-11-20 11:11] VITALS: TEMP 100.6; O2SAT 98
--- NOTE | 2018-11-20 12:13 | ED.PDOC ---
History of Present Illness - General Chief Complaint: General Stated Complaint: j tube clogged Time Seen by Provider: 11/20/18 11:25 Source: EMS, halfway records Exam Limitations: clinical condition - patient on chronic vent with metabolic encephalopathy, physical impairment - History of Present Illness Initial Comments: Brown Jadyn 53 y/o male resident at [facility] with metabolic encephalopathy on chronic ventilatory support brought by EMS with clogged jejunostomy feeding tubes.Unable to flush with lots of resistance.Also flushed with sprite but backing up. Timing/Duration: 1-3 hours Severity: moderate Improving Factors: nothing Worsening Factors: other - see hpi Associated Symptoms: other - see hpi Allergies/Adverse Reactions: Allergies Aloe [From A&D Zinc Oxide Cream] Allergy (Verified 08/31/18 17:43) Benzyl Alcohol [From A&D Zinc Oxide Cream] Allergy (Verified 08/31/18 17:43) Cetyl Dimethicone [From A&D Zinc Oxide Cream] Allergy (Verified 08/31/18 17:43) Cod Liver Oil [From A&D Zinc Oxide Cream] Allergy (Verified 08/31/18 17:43) Dimethicone [From A&D Zinc Oxide Cream] Allergy (Verified 08/31/18 17:43) Propylene Glycol [From A&D Zinc Oxide Cream] Allergy (Verified 08/31/18 17:43) Vitamin A [From A&D Zinc Oxide Cream] Allergy (Verified 08/31/18 17:43) Zinc Oxide Allergy (Verified 08/31/18 17:43) Home Medications: Ambulatory Orders Acetaminophen [Acetaminophen ER] 650 mg PEG Q4H PRN 11/17/17 Calcitriol [Rocaltrol] 0.5 ml PEG DAILY 11/17/17 Enoxaparin Sodium [Lovenox] 40 mg SUBCU QD 11/17/17 Ipratropium/Albuterol [Duoneb] 3 ml INH Q4H PRN 11/17/17 Ipratropium/Albuterol [Duoneb] 3 ml NEB Q6H 11/17/17 Pantoprazole Suspension [Protonix] 40 mg PEG DAILY 11/17/17 Potassium Bicarbonate [K-Effervescent] 25 meq PEG BID 11/17/17 RX: Acetylcysteine 2 ml IN BID 11/17/17 RX: Magnesium Oxide 400 mg PEG DAILY 11/17/17 Budesonide (Inhalation) [Pulmicort] 0.5 mg IN BID 06/14/18 Cyanocobalamin [B-12] 1,000 mcg PEG DAILY 06/14/18 RX: Ferrous Sulfate 7.5 ml PEG DAILY 06/14/18 RX: Folic Acid 1 mg PEG DAILY 06/14/18 RX: Sodium Chloride 1 gm PEG DAILY 06/14/18 RX: Cyclobenzaprine HCl 10 mg PO TID 08/31/18 Review of Systems - Review of Systems Unable to Obtain Due To: condition, clinical condition - chronic vent;vegetative state Past Medical History (General) - Patient Medical History Hx Seizures: No Hx Stroke: No Hx Dementia: Yes Hx Asthma: No Hx of COPD: - resp failure Hx Cardiac Disorders: No Hx Congestive Heart Failure: No Hx Pacemaker: No Hx Hypertension: No Hx Thyroid Disease: No Hx Diabetes: No Hx Gastroesophageal Reflux: Yes Hx Renal Disease: No Hx Other PMH: Yes - metabolic encephalopathy - Vaccination History Hx Tetanus, Diphtheria Vaccination: No Hx Influenza Vaccination: Yes Hx Pneumococcal Vaccination: Yes - Social History Hx Tobacco Use: No Hx Chewing Tobacco Use: No Hx Alcohol Use: No Hx Substance Use: No Hx Substance Use Treatment: No Hx Depression: No Hx Physical Abuse: No Hx Emotional Abuse: No Hx Suspected Abuse: No - Activities of Daily Living Skilled Nursing/Assisted Living (if applicable):: [facility] - Female History Patient : No Family Medical History - Family History Father Family History: Unknown Living Status: Unknown Physical Exam - Physical Exam General Appearance: Other - vegatative state on chronic vent Ears, Nose, Throat: normal pharynx Neck: normal inspection, other - tracheostomy patent Respiratory: decreased breath sounds, other - vent support Cardiovascular/Chest: normal peripheral pulses, regular rate, rhythm, no murmur Peripheral Pulses: radial,right: 2+, radial,left: 2+ Gastrointestinal/Abdominal: soft, other - jeejunostomy tube Extremity: other - contracture deformities Neurologic: other - vegetative state Skin Exam: normal color, warm/dry Progress - Progress Progress: 11/20/18 12:30 Vital Signs - 8 hr 11/20/18 11/20/18 11/20/18 11:00 11:13 12:14 Temperature 100.6 F H Pulse Rate [ 108 H left brachial] Respiratory 14 14 Rate Respiratory 20 Rate [Volume Control Data] Blood Pressure 103/69 [LEFT BRACHIAL] O2 Sat by Pulse 98 98 Oximetry 11/20/18 13:25 Placement of Jtube done under sterile technique and X-ray abd w/ gastrograffin - EKG/XRAY/CT XRAY: abdomen - gasrograffin abdominal x-ray with placement of J-tube jejunum Departure - Departure Clinical Impression: Jejunostomy malfunction Time of Disposition: 14:38 Disposition: Discharge to SNF Condition: Fair Departure Forms: ED Discharge - Pt. Copy, Patient Portal Self Enrollment Referrals: FAUZIA REID [Primary Care Provider] - 1-2 Weeks Home Medications: Ambulatory Orders Acetaminophen [Acetaminophen ER] 650 mg PEG Q4H PRN 11/17/17 Calcitriol [Rocaltrol] 0.5 ml PEG DAILY 11/17/17 Enoxaparin Sodium [Lovenox] 40 mg SUBCU QD 11/17/17 Ipratropium/Albuterol [Duoneb] 3 ml INH Q4H PRN 11/17/17 Ipratropium/Albuterol [Duoneb] 3 ml NEB Q6H 11/17/17 Pantoprazole Suspension [Protonix] 40 mg PEG DAILY 11/17/17 Potassium Bicarbonate [K-Effervescent] 25 meq PEG BID 11/17/17 RX: Acetylcysteine 2 ml IN BID 11/17/17 RX: Magnesium Oxide 400 mg PEG DAILY 11/17/17 Budesonide (Inhalation) [Pulmicort] 0.5 mg IN BID 06/14/18 Cyanocobalamin [B-12] 1,000 mcg PEG DAILY 06/14/18 RX: Ferrous Sulfate 7.5 ml PEG DAILY 06/14/18 RX: Folic Acid 1 mg PEG DAILY 06/14/18 RX: Sodium Chloride 1 gm PEG DAILY 06/14/18 RX: Cyclobenzaprine HCl 10 mg PO TID 08/31/18 Additional Instructions: Continue with all home medications;
--- NOTE | 2018-11-20 14:37 | RAD ---
Procedure: XR ABDOMEN 1 VIEW (KUB) Exam Date: 11/20/2018 Ordering Provider: Pierre Rodriguez Clinical Indication: j tube placement Comparison: 11/02/2018 Findings/impression: Contrast opacifies the J-tube and a small portion of the jejunum. No extraluminal contrast identified. Nonobstructive bowel gas pattern. There are no suspicious calcifications. There is no acute osseous abnormality. Electronically signed by: Lexx Kolb MD 11/20/2018 2:34 PM [employer]
[2018-11-20 16:06] VITALS: BP 93/67
[2018-11-20] MEDS ORDERED: NEOMYCIN-BACITRACIN-POLYMYXIN 0.9 GM UD TOP ONE (16:59)
== END 2018-11-20 14:47 ==
LOC: ER 10:54
DX: K94.13 Enterostomy malfunction (principal); G93.41 Metabolic encephalopathy; K21.9 Gastro-esophageal reflux disease without esophagitis; R40.3 Persistent vegetative state; Y83.8 Other surgical procedures as the cause of abnormal reaction of the patient, or of later complication, without mention of misadventure at the time of the procedure; Z99.11 Dependence on respirator [ventilator] status; Z79.899 Other long term (current) drug therapy

== ENCOUNTER 2018-11-21 15:17 | Emergency (ER) | payer OTHER ==
--- NOTE | 2018-11-21 16:27 | RAD ---
EXAM DESCRIPTION: Chest,1 View CLINICAL HISTORY: elevated heart rate COMPARISON: June 08, 2018 FINDINGS: The exam is limited by rotation and artifact from superimposed structures. A tracheostomy tube remains in place without apparent complication. Mediastinal contours are not well evaluated, but the heart does not appear enlarged. Evaluation of the right hemithorax is particularly limited by superimposed structures, but no airspace consolidation or right-sided effusion is seen. The left costophrenic angle is excluded, there is no large left-sided effusion. There is no pneumothorax or acute fracture. IMPRESSION: Limited exam due to patient positioning and artifact from superimposed structures without apparent intrathoracic abnormality. Electronically signed by: Elliott Dinero MD 11/21/2018 4:24 PM [facility]
--- NOTE | 2018-11-21 16:45 | ED.PDOC ---
History of Present Illness - General Chief Complaint: Cardiovascular Problem Stated Complaint: Elevated heart rate Time Seen by Provider: 11/21/18 16:37 Source: RN notes reviewed, Vital Signs reviewed, long term records Exam Limitations: clinical condition - History of Present Illness Initial Comments: Pt sent from [facility] for tachycardia. 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 Activities at Onset: none Prior Chest Pain/Cardiac Workup: no prior chest pain Improving Factors: nothing Worsening Factors: nothing Nitro Today/Relief: no nitro taken today Aspirin Treatment Today: no aspirin today Allergies/Adverse Reactions: Allergies Aloe [From A&D Zinc Oxide Cream] Allergy (Verified 08/31/18 17:43) Benzyl Alcohol [From A&D Zinc Oxide Cream] Allergy (Verified 08/31/18 17:43) Cetyl Dimethicone [From A&D Zinc Oxide Cream] Allergy (Verified 08/31/18 17:43) Cod Liver Oil [From A&D Zinc Oxide Cream] Allergy (Verified 08/31/18 17:43) Dimethicone [From A&D Zinc Oxide Cream] Allergy (Verified 08/31/18 17:43) Propylene Glycol [From A&D Zinc Oxide Cream] Allergy (Verified 08/31/18 17:43) Vitamin A [From A&D Zinc Oxide Cream] Allergy (Verified 08/31/18 17:43) Zinc Oxide Allergy (Verified 08/31/18 17:43) Home Medications: Ambulatory Orders Acetaminophen [Acetaminophen ER] 650 mg PEG Q4H PRN 11/17/17 Acetylcysteine 2 ml IN BID 11/17/17 Calcitriol [Rocaltrol] 0.5 ml PEG DAILY 11/17/17 Enoxaparin Sodium [Lovenox] 40 mg SUBCU QD 11/17/17 Ipratropium/Albuterol [Duoneb] 3 ml INH Q4H PRN 11/17/17 Ipratropium/Albuterol [Duoneb] 3 ml NEB Q6H 11/17/17 Magnesium Oxide 400 mg PEG DAILY 11/17/17 Pantoprazole Suspension [Protonix] 40 mg PEG DAILY 11/17/17 Potassium Bicarbonate [K-Effervescent] 25 meq PEG BID 11/17/17 Budesonide (Inhalation) [Pulmicort] 0.5 mg IN BID 06/14/18 Cyanocobalamin [B-12] 1,000 mcg PEG DAILY 06/14/18 Ferrous Sulfate 7.5 ml PEG DAILY 06/14/18 Folic Acid 1 mg PEG DAILY 06/14/18 Sodium Chloride 1 gm PEG DAILY 06/14/18 Cyclobenzaprine HCl 10 mg PO TID 08/31/18 Review of Systems - Review of Systems Cardiology: States: palpitations Unable to Obtain Due To: clinical condition Past Medical History (General) - Patient Medical History Hx Seizures: No Hx Stroke: No Hx Dementia: Yes Hx Asthma: No Hx of COPD: - resp failure Hx Cardiac Disorders: No Hx Congestive Heart Failure: No Hx Pacemaker: No Hx Hypertension: No Hx Thyroid Disease: No Hx Diabetes: No Hx Gastroesophageal Reflux: Yes Hx Renal Disease: No - Vaccination History Hx Tetanus, Diphtheria Vaccination: No Hx Influenza Vaccination: Yes Hx Pneumococcal Vaccination: Yes - Social History Hx Tobacco Use: No Hx Chewing Tobacco Use: No Hx Alcohol Use: No Hx Substance Use: No Hx Substance Use Treatment: No Hx Depression: No Hx Physical Abuse: No Hx Emotional Abuse: No Hx Suspected Abuse: No - Female History Patient : No Family Medical History - Family History Father Family History: Unknown Living Status: Unknown Physical Exam - Physical Exam General Appearance: Agitated, Emaciated - contractured arms and legs Eyes, Ears, Nose, Throat Exam: PERRL/EOMI Respiratory: decreased breath sounds, rhonchi Cardiovascular/Chest: normal peripheral pulses, regular rate, rhythm, no edema Gastrointestinal/Abdominal: normal bowel sounds, non tender, other Neurologic: oriented x 3 Skin Exam: normal color, diaphoresis Lymphatic: no adenopathy Progress - EKG/XRAY/CT EKG: Sinus, Tachy, nonspecific ST T wave Chg Comments: rate 148, TN 126, QRS 76 Departure - Departure Clinical Impression: Ventilator dependent, Feeding by G-tube Sepsis Qualifiers: Sepsis type: sepsis due to unspecified organism Qualified Code(s): A41.9 - Sepsis, unspecified organism UTI (urinary tract infection) Qualifiers: Urinary tract infection type: site unspecified Hematuria presence: without hematuria Qualified Code(s): N39.0 - Urinary tract infection, site not specified Disposition: Discharge to Home or Self Care Departure Forms: ED Discharge - Pt. Copy, Patient Portal Self Enrollment Instructions: DI for Chest Pain Referrals: FAUZIA REID [Primary Care Provider] - 1-2 Weeks Home Medications: Ambulatory Orders Acetaminophen [Acetaminophen ER] 650 mg PEG Q4H PRN 11/17/17 Acetylcysteine 2 ml IN BID 11/17/17 Calcitriol [Rocaltrol] 0.5 ml PEG DAILY 11/17/17 Enoxaparin Sodium [Lovenox] 40 mg SUBCU QD 11/17/17 Ipratropium/Albuterol [Duoneb] 3 ml INH Q4H PRN 11/17/17 Ipratropium/Albuterol [Duoneb] 3 ml NEB Q6H 11/17/17 Magnesium Oxide 400 mg PEG DAILY 11/17/17 Pantoprazole Suspension [Protonix] 40 mg PEG DAILY 11/17/17 Potassium Bicarbonate [K-Effervescent] 25 meq PEG BID 11/17/17 Budesonide (Inhalation) [Pulmicort] 0.5 mg IN BID 06/14/18 Cyanocobalamin [B-12] 1,000 mcg PEG DAILY 06/14/18 Ferrous Sulfate 7.5 ml PEG DAILY 06/14/18 Folic Acid 1 mg PEG DAILY 06/14/18 Sodium Chloride 1 gm PEG DAILY 06/14/18 Cyclobenzaprine HCl 10 mg PO TID 08/31/18 Critical Care Note - Critical Care Note Total Time (mins): 45 Comments: Critical care: presenting complaint of tachycardia, agitation; Findings : Leukocytosis, tachycardia, tachypnea, elevated Lactate, UTI; Actions: Blood cultures x 2, Iv bolus of 2000 ml NS, IV cefepime 2 grams; Systems at risk: cardiovascular , Transfer to Outside Facility - Transfer Information Accepting Facility: [facility] Reason for Transfer: ICU - Dr Hampton accepted pt to the ED
[2018-11-21] MEDS ORDERED: SODIUM CHLORIDE 0.9% 1000ML 1,000 ML IVS ONE ×2 (16:58→17:43)
[2018-11-21] MEDS ORDERED: CEFEPIME 2 GM in SODIUM CHL 0.9% 50ML MIN-BAG+ 50 ML IVPB ONE (17:12)
[2018-11-21] MEDS ORDERED: SODIUM CHL 0.9% 50ML MIN-BAG+ 50 ML IVPB ONE (18:44)
[2018-11-21] MEDS ORDERED: CEFEPIME 2 GM VIAL ONE (18:44)
[2018-11-21 20:48] VITALS: BP 117/91; TEMP 100.4; O2SAT 99
== END 2018-11-21 20:10 | disposition home or self-care (01) ==
LOC: ER 15:17
DX: A41.9 Sepsis, unspecified organism (principal); N39.0 Urinary tract infection, site not specified; R00.0 Tachycardia, unspecified; G93.1 Anoxic brain damage, not elsewhere classified; K21.9 Gastro-esophageal reflux disease without esophagitis; Z99.11 Dependence on respirator [ventilator] status; Z93.1 Gastrostomy status; Z88.8 Allergy status to other drugs, medicaments and biological substances; Z79.899 Other long term (current) drug therapy
CPT/HCPCS: 36415; 36600; 71045; 80053; 81001; 82803; 82805; 83605; 85025; 87040; 87086; 93005; 94002; J0692; J7030; J7050